=== PATIENT | female | born 1955 | race Hispanic/Latino ===

== ENCOUNTER 2016-10-11 10:26 | Inpatient (IN) | payer MEDICARE, MEDICAID ==
[2016-10-11 10:27] VITALS: BMI 33.1
[2016-10-11] MEDS ORDERED: Albuterol 0.083% Inhal Sol (2.5 mg/3 mL) UD IH STA (12:25)
[2016-10-11 13:09] LABS: BASO # 0.1 K/uL (0.0-0.2); EOS # 0.4 K/uL (0.0-0.7); EOS % 6.8 % (0.0-4.0); HEMATOCRIT 39.6 % (34.0-47.0); LYMPH # 1.7 K/uL (1.0-4.3); LYMPH % 29.1 % (20.0-40.0); MEAN CELL VOLUME 95.6 fL (81.0-99.0); MEAN CORPUSCULAR HEMOGLOBIN 31.5 pg (27.0-31.0); MEAN PLATELET VOLUME 9.2 fL (7.2-11.7); MONO # 0.5 K/uL (0.0-0.8); MONO % 7.8 % (0.0-10.0); WHITE BLOOD COUNT 5.8 K/uL (4.8-10.8)
[2016-10-11 13:19] LABS: CHLORIDE 100 mmol/L (98-107); SODIUM 137 mmol/L (132-148)
--- NOTE | 2016-10-11 13:19 | RAD ---
HISTORY: Shortness of breath COMPARISON: 06/27/2014 TECHNIQUE: Chest PA and lateral FINDINGS: LUNGS: Chronic interstitial lung markings. Mild venous congestion. PLEURA: No significant pleural effusion identified. No pneumothorax apparent. CARDIOVASCULAR: Normal. OSSEOUS STRUCTURES: No significant abnormalities. VISUALIZED UPPER ABDOMEN: Normal. OTHER FINDINGS: None. IMPRESSION: Chronic interstitial lung markings. Mild venous congestion.
[2016-10-11 13:20] LABS: POTASSIUM 3.9 mmol/L (3.6-5.2)
[2016-10-11 13:22] LABS: ALB/GLOB RATIO 1.2 (1.0-2.1); ALKALINE PHOSPHATASE 62 U/L (38-126); ALT/SGPT 51 U/L (9-52); AST/SGOT 53 U/L (14-36); BILIRUBIN,TOTAL 0.8 mg/dL (0.2-1.3); BLOOD UREA NITROGEN 8 mg/dL (7-17); CARBON DIOXIDE 27 mmol/L (22-30); GFR AFRICAN-AMERICAN > 60; GLUCOSE,RANDOM 91 mg/dL (65-105); TOTAL PROTEIN 7.3 g/dL (6.3-8.3)
[2016-10-11 13:23] LABS: CALCIUM 9.4 mg/dl (8.6-10.4)
--- NOTE | 2016-10-11 14:29 | C.PDOC ---
History Of Present Illness 61 year old female with a history of asthma, presents to the ED with complaints of SOB. (+) cough (+) chills (-) fever . Notes she did not use her inhaler this morning. Also notes that her left leg has been swollen for 1+ years but worse the last couple of days. She also reports urinary frequency and felling her "bladder is going to fall out." Denies trauma, chest pain, palpitations, or any other complaints at this time. Time Seen by Provider: 10/11/16 11:46 Chief Complaint (Nursing): Lower Extremity Problem/Injury History Per: Patient History/Exam Limitations: no limitations Onset/Duration Of Symptoms: Days Current Symptoms Are (Timing): Still Present Severity: Mild Pain Scale Rating Of: 3 Recent travel outside of the [place]: No Past Medical History Reviewed: Historical Data, Nursing Documentation, Vital Signs Vital Signs: Last Vital Signs Temp 102.5 F H 10/14/16 10:42 Pulse 101 H 10/14/16 09:33 Resp 20 10/14/16 08:20 BP 118/74 10/14/16 08:20 Pulse Ox 95 10/14/16 08:20 - Medical History PMH: Anemia, Anxiety, Arthritis, Asthma, Back Problems, Bipolar Disorder, Bronchitis, COPD, Depression, Fibromyalgia, Fractures, Gastrointestinal Ulcer, Gall Bladder Disease (under diagnosis), HTN, Hypercholesterolemia, Osteoporosis , Pneumonia, Rheumatoid Arthritis, Sleep Apnea (CPAP @ 15) - [facility] Procedures ENDOSCOPIC BRONCHIAL BX (09/07/13) ESOPHAGOGASTRODUODENOSCOPY [EGD] W/CLOSED BIOPSY (08/15/13) NON-INVASIVE MECHANICAL VENTILATION (06/26/14) Family History: States: Unknown Family Hx - Social History Hx Tobacco Use: No Hx Alcohol Use: No Hx Substance Use: No - Immunization History Hx Tetanus Toxoid Vaccination: Yes Hx Influenza Vaccination: Yes Hx Pneumococcal Vaccination: No Review Of Systems Except As Marked, All Systems Reviewed And Found Negative. Constitutional: Negative for: Fever, Chills Cardiovascular: Negative for: Chest Pain, Palpitations Respiratory: Positive for: Shortness of Breath. Negative for: Cough Genitourinary: Positive for: Frequency. Negative for: Dysuria Musculoskeletal: Positive for: Other (+Left leg swelling ). Negative for: Back Pain Neurological: Negative for: Weakness, Numbness Physical Exam - Physical Exam Appears: Non-toxic, No Acute Distress, Agitated, Other (+Anxious) Skin: Normal Color, Warm, Dry Head: Atraumatic, Normacephalic Eye(s): bilateral: Normal Inspection, EOMI Nose: Normal Oral Mucosa: Moist Throat: Normal, No Erythema, No Exudate Neck: Normal ROM, Supple Chest: Symmetrical, No Deformity Cardiovascular: Rhythm Regular Respiratory: Normal Breath Sounds, No Accessory Muscle Use, No Rales, No Rhonchi , No Wheezing Gastrointestinal/Abdominal: Soft, Tenderness (+Mild suprapubic tenderness), No Distention, No Guarding, No Rebound Extremity: Normal ROM, Pedal Edema (+Left pedal edema), No Calf Tenderness, No Deformity Pulses: Left Dorsalis Pedis: Normal, Right Dorsalis Pedis: Normal Neurological/Psych: Oriented x3, Normal Speech, Normal Cognition, Normal Motor, Normal Sensation ED Course And Treatment - Laboratory Results Result Diagrams: 10/11/16 13:06 10/11/16 13:06 ECG: Interpreted By Me, Viewed By Me ECG Rhythm: Sinus Rhythm Rate From EC O2 Sat by Pulse Oximetry: 95 (Room air) Pulse Ox Interpretation: Normal - Radiology CXR: Viewed By Me, Read By Radiologist CXR Interpretation: Yes: Other (Chronic interstitial lung markings. Mild venous congestion.) - CT Scan/US CTA Chest Other Rad Studies (CT/US): Read By Radiologist, Radiology Report Reviewed CT/US Interpretation: reator : Derrek Crotez MD. Dictator : Derrek Cortez MD. Sweetbread Trimmer : General Labor Forklift Operator : Derrek Cortez MD. Approver2 : Report Date : 10/11/2016 16:32:53. My Comment : . PROCEDURE: CT Chest with contrast (Pulmonary Angiogram). HISTORY: SOB. COMPARISON: CT chest 2013. TECHNIQUE: Axial computed tomography images were obtained of the chest in the pulmonary arterial phase of enhancement. Coronal and sagittal reformatted images were created and reviewed. Intravenous contrast dose: 100 mL Visipaque 320. Radiation dose: Total exam DLP = 502.20 mGy-cm. This CT exam was performed using one or more of the following dose reduction techniques : Automated exposure control, adjustment of the mA and/or kV according to patient size, and/or use of iterative reconstruction technique. FINDINGS: PULMONARY ARTERIES: Unremarkable. No pulmonary embolism. AORTA: No acute findings. No thoracic aortic aneurysm. LUNGS: Patchy and confluent ground- glass opacity in the left upper lobe, involving predominantly the lingula. , possibly representing early pneumonia. There is a small amount of heladio consolidation, possibly atelectasis, in the posterior lingula. . Stable 4 mm nodule in the right upper lobe (series 4, image 43). No new pulmonary mass. PLEURAL SPACES: Unremarkable. No effusion or pneuomothorax. HEART: Unremarkable. No cardiomegaly. No significant pericardial effusion. LYMPH NODES : There are several enlarged mediastinal lymph nodes. There is mild bilateral hilar lymphadenopathy. BONES, CHEST WALL: No fracture. OTHER FINDINGS: Distended esophagus filled with particulate food matter, to the level of the lung apices. Uncertain etiology. This finding was noted on examination of 2013 as well. Extensive fatty infiltration of the liver is noted. IMPRESSION: Left upper lobe infiltrate, nonspecific. No evidence of pulmonary embolism. Mild mediastinal and bilateral hilar lymphadenopathy. Distended esophagus filled with particulate food matter, uncertain etiology. No evidence of narrowing of the distal esophagus. Progress Note: Patient treated with Albuterol. Venous Duplex: Negative. Dr. Russell saw and evaluated the patient in the ED. He agreed with admission and will further evaluate the patient. Disposition - Disposition Disposition: HOSPITALIZED Disposition Time: 13:26 Condition: STABLE - Clinical Impression Clinical Impression: Pneumonia, Urinary tract infection, Swelling of lower extremity - PA / COKE INSPECTOR / Resident Statement MD/DO has reviewed & agrees with the documentation as recorded. - Scribe Statement The provider has reviewed the documentation as recorded by the Scribe Soniya Rosales. All medical record entries made by the Scribe were at my direction and personally dictated by me. I have reviewed the chart and agree that the record accurately reflects my personal performance of the history, physical exam, medical decision making, and the department course for this patient. I have also personally directed, reviewed, and agree with the discharge instructions and disposition.
[2016-10-11] MEDS ORDERED: Iodixanol 320 MG/ML 100 ML BOTTLE IV ONE (15:07)
[2016-10-11 15:26] LABS: RBC URINE 5 /hpf (0-3); URINE BACTERIA RARE (<OCC); URINE BILIRUBIN NEGATIVE (NEGATIVE); URINE BLOOD NEGATIVE (NEGATIVE); URINE COLOR Yellow (YELLOW); URINE GLUCOSE (UA) NORMAL (Normal); URINE KETONE NEGATIVE (NEGATIVE); URINE LEUKOCYTE ESTERASE 3+ Leu/uL (Negative); URINE PROTEIN NEGATIVE (NEGATIVE); URINE UROBILINOGEN NORMAL mg/dL (0.2-1.0); WBC URINE 15 /hpf (0-5)
--- NOTE | 2016-10-11 16:34 | CT ---
PROCEDURE: CT Chest with contrast (Pulmonary Angiogram) HISTORY: SOB COMPARISON: CT chest 06/27/2014. TECHNIQUE: Axial computed tomography images were obtained of the chest in the pulmonary arterial phase of enhancement. Coronal and sagittal reformatted images were created and reviewed. Intravenous contrast dose: 100 mL Visipaque 320 Radiation dose: Total exam DLP = 502.20 mGy-cm. This CT exam was performed using one or more of the following dose reduction techniques: Automated exposure control, adjustment of the mA and/or kV according to patient size, and/or use of iterative reconstruction technique. FINDINGS: PULMONARY ARTERIES: Unremarkable. No pulmonary embolism. AORTA: No acute findings. No thoracic aortic aneurysm. LUNGS: Patchy and confluent ground-glass opacity in the left upper lobe, involving predominantly the lingula. , possibly representing early pneumonia. There is a small amount of heladio consolidation, possibly atelectasis, in the posterior lingula. . Stable 4 mm nodule in the right upper lobe (series 4, image 43). No new pulmonary mass. PLEURAL SPACES: Unremarkable. No effusion or pneuomothorax. HEART: Unremarkable. No cardiomegaly. No significant pericardial effusion. LYMPH NODES: There are several enlarged mediastinal lymph nodes. There is mild bilateral hilar lymphadenopathy. BONES, CHEST WALL: No fracture. OTHER FINDINGS: Distended esophagus filled with particulate food matter, to the level of the lung apices. Uncertain etiology. This finding was noted on examination of 06/27/2014 as well. Extensive fatty infiltration of the liver is noted. IMPRESSION: Left upper lobe infiltrate, nonspecific. No evidence of pulmonary embolism. Mild mediastinal and bilateral hilar lymphadenopathy. Distended esophagus filled with particulate food matter, uncertain etiology. No evidence of narrowing of the distal esophagus.
[2016-10-11] MEDS ORDERED: Moxifloxacin IV 400mg/250ml NS 250 ML IV ONE (16:55)
[2016-10-11] MEDS ORDERED: Moxifloxacin IV 400mg/250ml NS 250 ML IVPB ONE (18:49)
--- NOTE | 2016-10-11 19:09 | CP.PCM.HP ---
History of Present Illness - History of Present Illness History of Present Illness: chief complaint: Worsening pain, and shortness of breath History present illness: 61-year-old female with a history of lupus, hypertension, osteoarthritis, chronic fibromyalgia, diabetes, hypertension, sleep apnea, came to the emergency room because of not feeling well. patient started having increasing symptoms of fever in the emergency room, complaining of pain, abdominal pain, nausea, associated with vomiting. Given the worsening symptoms patient was hospitalized with a possible sepsis, and started on IV antibiotic. Needed hospitalization Present on Admission - Present on Admission Any Indicators Present on Admission: No History of DVT/PE: No History of Uncontrolled Diabetes: No Urinary Catheter: No Decubitus Ulcer Present: No Review of Systems - Review of Systems All systems: reviewed and no additional remarkable complaints except Review of Systems: patient is having general is to body pain, headache noted, nausea noted, vomiting occasionally, lower abdominal pain, urinary discomfort noted, tenderness to pain, also complaining of pain in the bilateral knee and the low your ankle joint. fever, chills, cough, with mucus production noted Past Patient History - Infectious Disease Hx of Infectious Diseases: None - Past Medical History & Family History Past Medical History?: Yes Past Family History: Reviewed and not pertinent - Past Social History Smoking Status: Former Smoker - CARDIAC Hx Hypercholesterolemia: Yes Hx Hypertension: Yes - PULMONARY Hx Asthma: Yes Hx Bronchitis: Yes Hx Chronic Obstructive Pulmonary Disease (COPD): Yes Hx Pneumonia: Yes Hx Sleep Apnea: Yes (CPAP @ 15) - NEUROLOGICAL Hx Neurological Disorder: Yes Hx Dizziness: Yes Hx Syncope: Yes - HEENT Hx HEENT Problems: No - RENAL Hx Chronic Kidney Disease: No - ENDOCRINE/METABOLIC Hx Endocrine Disorders: Yes Hx Systemic Lupus Erythematosus: Yes - HEMATOLOGICAL/ONCOLOGICAL Hx Anemia: Yes - INTEGUMENTARY Hx Dermatological Problems: No - MUSCULOSKELETAL/RHEUMATOLOGICAL Hx Arthritis: Yes Hx Fractures: Yes Hx Osteoporosis: Yes Hx Rheumatoid Arthritis: Yes - GASTROINTESTINAL Hx Gall Bladder Disease: Yes (under diagnosis) - GENITOURINARY/GYNECOLOGICAL Hx Genitourinary Disorders: Yes Hx Uterine Cancer: Yes Other/Comment: urinate from two places and difficulty also under diagnosis Dr Collier - PSYCHIATRIC Hx Anxiety: Yes Hx Bipolar Disorder: Yes Hx Depression: Yes Hx Substance Use: No - SURGICAL HISTORY Hx Orthopedic Surgery: Yes (right elbow with metal fixation) - ANESTHESIA Hx Anesthesia: Yes Hx Anesthesia Reactions: No Hx Malignant Hyperthermia: No Meds Allergies/Adverse Reactions: Allergies Allergy/AdvReac Type Severity Reaction Status Date / Time No Known Allergies Allergy Verified 10/11/16 10:58 Physical Exam - Constitutional Additional comments: chest good air entry bilaterally regular heart sound nontender abdomen extended is no pedal edema [employer]ON[employer] alert awake oriented. Chills noted. Results - Vital Signs Recent Vital Signs: Last Vital Signs Temp 97.9 F 10/11/16 11:01 Pulse 78 10/11/16 11:01 Resp 20 10/11/16 12:06 BP 101/68 10/11/16 11:01 Pulse Ox 95 10/11/16 16:50 - Labs Result Diagrams: 10/16/16 07:10 10/15/16 11:24 Labs: Laboratory Results - last 24 hr 10/11/16 15:08 Urine Color Yellow Urine Clarity Hazy Urine pH 6.0 Ur Specific [place] 1.005 Urine Protein Negative Urine Glucose (UA) Normal Urine Ketones Negative Urine Blood Negative Urine Nitrate Negative Urine Bilirubin Negative Urine Urobilinogen Normal Ur Leukocyte Esterase 3+ H Urine WBC (Auto) 15 H Urine RBC (Auto) 5 H Ur Squamous Epith Cells 48 H Urine Bacteria Rare Assessment & Plan (1) Abnormal transaminases Status: Acute (2) Bronchitis Assessment and Plan: patient admitted with a history of hypertension diabetes hypercholesteremia osteoarthritis. Now having possible febrile illness, fever, chills, and associated with the abdominal pain. Underlying colitis cannot be ruled out. patient also has a history of pneumonia, pneumonia cannot be ruled out, advised the patient to start antibiotic continue to monitor we'll follow the patient Status: Acute (3) Chr obstructive pulmonary disease w/ acute lower respiratory infxn Status: Acute
[2016-10-11] MEDS ORDERED: Piperacillin/Tazobact 3.375 GM in Sodium Chloride 100 ML IVPB SCH (19:15)
[2016-10-11] MEDS: Saccharomyces Boulardi 250 mg Cap PO SCH (20:21)
[2016-10-11] MEDS: Piperacill/Tazo 3.375gm in Dex 50 ML IVPB SCH (22:10)
[2016-10-12] MEDS: Piperacill/Tazo 3.375gm in Dex 50 ML IVPB SCH ×3 (04:56→22:08)
[2016-10-12] MEDS: Fluticasone-Salmeterol 250-50mcg Diskus IH SCH ×2 (08:37→20:09)
[2016-10-12] MEDS: Saccharomyces Boulardi 250 mg Cap PO SCH ×2 (10:19→18:44)
--- NOTE | 2016-10-12 15:54 | VASCLAB ---
PROCEDURE: Left Lower Extremity Venous Duplex Exam. HISTORY: swelling PRIORS: None. TECHNIQUE: Left common femoral, femoral, popliteal and posterior tibial, peroneal and great saphenous veins were evaluated. Flow was assessed with color Doppler, compressibility, assessment of phasic flow and augmentation response. Report prepared by EMMANUEL Omer, RVT FINDINGS: LEFT: 1. Common Femoral Vein: 1.1. Compressibility - Fully compressible: Thrombus - None : Flow - Phasic: Augmentation -Normal: Reflux - None. 2. Femoral Vein: 2.1. Compressibility - Fully compressible: Thrombus - None: Flow - Phasic: Augmentation -Normal: Reflux - None. 3. Popliteal Vein: 3.1. Compressibility - Fully compressible: Thrombus - None: Flow - Phasic: Augmentation -Normal: Reflux - None. 4. Posterior Tibial Vein: 4.1. Compressibility - Fully compressible: Thrombus - None: Flow - Phasic: Augmentation -Normal: Reflux - None. 5. Peroneal Vein: 5.1. Compressibility - Fully compressible: Thrombus - None: Flow - Phasic: Augmentation -Normal: Reflux - None. 6. Great Saphenous Vein: 6.1. Compressibility - Fully compressible: Thrombus - None: Flow - Phasic: Augmentation - Normal: Reflux - None. OTHER FINDINGS: IMPRESSION: No evidence of deep or superficial vein thrombosis of the left lower extremity with excellent venous flow. Normal valve function noted of the left side. Normal venous flow noted in the right common femoral vein.
--- NOTE | 2016-10-12 16:12 | US ---
PROCEDURE: Renal/urinary bladder ultrasound HISTORY: cystitis COMPARISON: CT abdomen and pelvis with contrast performed 07/24/14 TECHNIQUE: Sonogram of the kidneys. FINDINGS: Limited examination. RIGHT KIDNEY: Measures: 12.3 x 6.1 x 5.1 cm. No obstructing calculus or hydronephrosis identified. LEFT KIDNEY: Measures: 13.8 x 7.1 x 5.6 cm. By report, the metal trimmer identified a punctate possible calcification as well as a possible tiny cyst in the left midpole, however due to lack of patient cooperation images were unable to be obtained. Recommend repeat imaging at which time the patient consents to further imaging. OTHER FINDINGS: Prevoid urinary bladder measures approximately 9.0 x 6.7 x 9.6 cm, calculated volume 299.10 mL. The patient declined postvoid imaging. Incidental note is made of echogenic hepatic parenchyma. IMPRESSION: By report, the metal trimmer identified a punctate possible calcification as well as a possible tiny cyst in the left midpole, however due to lack of patient cooperation images demonstrating these findings were not obtained. Recommend repeat imaging at which time the patient consents to further imaging. Prevoid urinary bladder measures approximately 9.0 x 6.7 x 9.6 cm, calculated volume 299.10 mL. The patient declined postvoid imaging. Incidental note is made of echogenic hepatic parenchyma. Echogenic liver may be seen in setting of hepatic parenchymal disease or fatty infiltration.
--- NOTE | 2016-10-12 19:55 | CP.PCM.PN ---
Subjective - Date & Time of Evaluation Date of Evaluation: 10/12/16 Time of Evaluation: 19:55 - Subjective Subjective: patient had evidence of low-grade fever. She's not feeling well. Chest pain noted. Nausea. Lower abdominal pain noted. Diarrhea present Objective - Vital Signs/Intake and Output Vital Signs (last 24 hours): Temp Pulse Resp BP Pulse Ox 99 F 113 H 22 148/84 96 10/12/16 15:21 10/12/16 15:21 10/12/16 15:21 10/12/16 15:21 10/12/16 15:21 - Medications Medications: Current Medications Acetaminophen (Tylenol 325mg Tab) 650 mg PO Q6 PRN PRN Reason: Fever >100.4 F Last Admin: 10/12/16 10:19 Dose: 650 mg Ezetimibe (Zetia) 10 mg PO DAILY [facility] Last Admin: 10/12/16 10:21 Dose: 10 mg Fenofibrate (Tricor) 145 mg PO DAILY [facility] Last Admin: 10/12/16 10:21 Dose: 145 mg Heparin Sodium (Porcine) (Heparin) 5,000 units SC Q12 [facility] Last Admin: 10/12/16 10:22 Dose: 5,000 units Hydroxychloroquine Sulfate (Plaquenil) 200 mg PO BID [facility] Last Admin: 10/12/16 18:45 Dose: 200 mg Piperacillin Sod/Tazobactam Sod (Zosyn 3.375 Gm Iv Premix) 50 mls @ 200 mls/hr IVPB Q8H [facility] Last Admin: 10/12/16 12:36 Dose: 200 mls/hr Metoclopramide HCl (Reglan) 5 mg PO DAILY [facility] Last Admin: 10/12/16 10:21 Dose: 5 mg Montelukast Sodium (Singulair) 10 mg PO HS [facility] Last Admin: 10/11/16 22:02 Dose: 10 mg Morphine Sulfate (Morphine) 2 mg IVP Q4 PRN PRN Reason: Pain, moderate (4-7) Last Admin: 10/12/16 09:06 Dose: 2 mg Paroxetine HCl (Paxil Cr) 25 mg PO DAILY [facility] Last Admin: 10/12/16 10:21 Dose: 25 mg Pregabalin (Lyrica) 75 mg PO QID [facility] Last Admin: 10/12/16 18:44 Dose: Not Given Saccharomyces Boulardii (Florastor) 250 mg PO BID [facility] Last Admin: 10/12/16 18:44 Dose: 250 mg Fluticasone/Salmeterol (Advair Diskus 250/50) 1 puff IH RQ12 [facility] Last Admin: 10/12/16 08:37 Dose: Not Given chest good air entry bilaterally regular heart sound nontender abdomen. Denies any nausea vomiting. Currently on IV antibiotic. Low-grade fever. Septic workup in progress Assessment and Plan (1) Fever Assessment & Plan: patient is currently having fever and sepsis. Unclear source. Currently on antibiotic. Continue to monitor. CT scan of the abdomen. We'll follow the patient Status: Acute (2) Sepsis Status: Acute
[2016-10-13] MEDS: Piperacill/Tazo 3.375gm in Dex 50 ML IVPB SCH ×3 (04:53→19:38)
[2016-10-13] MEDS: Fluticasone-Salmeterol 250-50mcg Diskus IH SCH ×2 (08:13→19:21)
[2016-10-13] MEDS: Saccharomyces Boulardi 250 mg Cap PO SCH ×2 (09:17→19:24)
--- NOTE | 2016-10-13 13:54 | CP.PCM.PN ---
Subjective - Date & Time of Evaluation Date of Evaluation: 10/13/16 Time of Evaluation: 22:47 - Subjective Subjective: patient is having increasing symptoms of weakness, tiredness, she's not feeling well. Low-grade fever noted. Diarrhea noted Objective - Vital Signs/Intake and Output Vital Signs (last 24 hours): Temp Pulse Resp BP Pulse Ox 99.6 F 103 H 20 109/78 95 10/13/16 08:30 10/13/16 08:30 10/13/16 08:30 10/13/16 08:30 10/13/16 08:30 Intake and Output: 10/13/16 10/13/16 06:59 18:59 Intake Total 530 Output Total 200 Balance 330 - Medications Medications: Current Medications Acetaminophen (Tylenol 325mg Tab) 650 mg PO Q6 PRN PRN Reason: Fever >100.4 F Last Admin: 10/13/16 04:52 Dose: 650 mg Ezetimibe (Zetia) 10 mg PO DAILY [facility] Last Admin: 10/13/16 09:18 Dose: 10 mg Fenofibrate (Tricor) 145 mg PO DAILY [facility] Last Admin: 10/13/16 09:16 Dose: 145 mg Heparin Sodium (Porcine) (Heparin) 5,000 units SC Q12 [facility] Last Admin: 10/13/16 09:18 Dose: 5,000 units Hydroxychloroquine Sulfate (Plaquenil) 200 mg PO BID [facility] Last Admin: 10/13/16 09:17 Dose: 200 mg Piperacillin Sod/Tazobactam Sod (Zosyn 3.375 Gm Iv Premix) 50 mls @ 200 mls/hr IVPB Q8H [facility] Last Admin: 10/13/16 12:47 Dose: 200 mls/hr Lorazepam (Ativan) 2 mg PO Q12 [facility] Last Admin: 10/13/16 09:17 Dose: 2 mg Metoclopramide HCl (Reglan) 5 mg PO DAILY [facility] Last Admin: 10/13/16 09:17 Dose: 5 mg Montelukast Sodium (Singulair) 10 mg PO HS [facility] Last Admin: 10/12/16 22:08 Dose: 10 mg Morphine Sulfate (Morphine) 2 mg IVP Q4 PRN PRN Reason: Pain, moderate (4-7) Last Admin: 10/12/16 22:07 Dose: 2 mg Paroxetine HCl (Paxil Cr) 25 mg PO DAILY [facility] Last Admin: 10/13/16 09:17 Dose: 25 mg Pregabalin (Lyrica) 75 mg PO QID [facility] Last Admin: 10/13/16 09:17 Dose: 75 mg Saccharomyces Boulardii (Florastor) 250 mg PO BID [facility] Last Admin: 10/13/16 09:17 Dose: 250 mg Fluticasone/Salmeterol (Advair Diskus 250/50) 1 puff IH RQ12 [facility] Last Admin: 10/13/16 08:13 Dose: 1 puff chest good air entry bilaterally regular heart sound nontender abdomen. On antibiotic Assessment and Plan (1) Pyelonephritis, unspecified Assessment & Plan: possible pyelonephritis. On antibiotic. Continue the current treatment. Status: Acute (2) Sepsis Status: Acute (3) UTI (urinary tract infection) Status: Acute
[2016-10-13] MEDS ORDERED: Iohexol 240 (50 ml) PO ONE (14:50)
--- NOTE | 2016-10-13 17:43 | CT ---
PROCEDURE: CT Abdomen and Pelvis without intravenous contrast HISTORY: bladder herniation, colitis COMPARISON: 07/24/2014. CT abdomen and pelvis. TECHNIQUE: Oral contrast only. Radiation dose: Total exam DLP = 1004.16 mGy-cm. This CT exam was performed using one or more of the following dose reduction techniques: Automated exposure control, adjustment of the mA and/or kV according to patient size, and/or use of iterative reconstruction technique. FINDINGS: LOWER THORAX: Eccentric mass gastroesophageal junction associated with hiatal hernia. Gastric neoplasm should be considered based on appearance and representing a new finding compared to the prior CT scan July 24, 2014. LIVER: Hepatopedal blood flow. Fatty infiltration manifest ultrasonographically as increased hepatomegaly. GALLBLADDER AND BILE DUCTS: Unremarkable. PANCREAS: Unremarkable. No gross lesion or ductal dilatation. SPLEEN: Borderline splenomegaly. Orthogonal measurements 6.8 x 13.7 cm. ADRENALS: Unremarkable. No mass. KIDNEYS AND URETERS: The kidneys are mildly edematous with perinephric stranding bilaterally. The right kidney is affected to a greater degree than the left. Findings are nonspecific, I can be seen with pyelonephritis. No evidence of hydronephrosis or obstructing calculus disease VASCULATURE: Unremarkable. No aortic aneurysm. BOWEL: Diverticulosis without an acute inflammatory component or other associated pathologic process. APPENDIX: Unremarkable. Normal appendix. PERITONEUM: Unremarkable. No free fluid. No free air. LYMPH NODES: Unremarkable. No enlarged lymph nodes. BLADDER: Unremarkable. REPRODUCTIVE: Unremarkable. BONES: No acute fracture. Scoliosis, secondary degenerative change at multiple levels. OTHER FINDINGS: Spell IMPRESSION: 1. Gastric mass at gastroesophageal junction a new finding compared to prior CT scans and suspicious for neoplasm. 2. Edematous kidneys bilaterally with perinephric stranding likely pyelonephritis. No evidence of obstructive uropathy. Unremarkable urinary bladder. 3. Hepatic steatosis. Hepatosplenomegaly.
--- NOTE | 2016-10-13 19:08 | CARD ---
APPROVED REPORT EKG Measurement Heart [id number] <Conclusion> Normal sinus rhythm Normal ECG
[2016-10-14] MEDS: Piperacill/Tazo 3.375gm in Dex 50 ML IVPB SCH ×3 (04:30→21:00)
[2016-10-14] MEDS: Fluticasone-Salmeterol 250-50mcg Diskus IH SCH ×2 (08:45→19:23)
[2016-10-14] MEDS: Saccharomyces Boulardi 250 mg Cap PO SCH ×2 (10:26→17:34)
--- NOTE | 2016-10-14 13:56 | PCM.URO ---
Urology Progress Note - Objective Intake & Output: Intake & Output 10/13/16 10/14/16 10/14/16 18:59 06:59 18:59 Intake Total 1050 Balance 1050 Intake: Intake, IV Amount 50 Right Forearm 50 Oral 1000 Other: # Voids Urine, Voided 5 Vital Signs: Vital Signs - 24 hr 10/13/16 10/13/16 10/14/16 15:49 23:30 00:21 Temperature 100 F H 99.1 F Pulse Rate 100 H 106 H 105 H Respiratory 20 20 Rate Blood Pressure 124/74 112/66 O2 Sat by Pulse 96 95 Oximetry 10/14/16 10/14/16 10/14/16 03:22 04:02 04:30 Temperature 101 F H Pulse Rate 105 H 115 H Respiratory Rate Blood Pressure O2 Sat by Pulse Oximetry 10/14/16 10/14/16 10/14/16 05:30 08:20 09:33 Temperature 98.6 F 99.3 F Pulse Rate 99 H 101 H Respiratory 20 Rate Blood Pressure 118/74 O2 Sat by Pulse 95 Oximetry 10/14/16 10/14/16 10:42 13:26 Temperature 102.5 F H Pulse Rate Respiratory Rate Blood Pressure O2 Sat by Pulse 95 Oximetry
--- NOTE | 2016-10-14 19:14 | CP.PCM.CON ---
History of Present Illness - History of Present Illness History of Present Illness: 61 year old female well know to me in the past but not seen in the office for more than one year. Has h/o bad acid reflux disease, large paraesophageal hiatal hernia and Al's esophagus last endoscoped in 2013. Admitted with SOB and found to have ELISE pneumonia and exacerbation of COPD, worsening leg edema. She reports pain in epigastric area and regurgitation of stomach contents and has been vomiting after meals since admission. According to her she has not been on acid reflux meds at home but it seems she is somewhat hypoxic (not wearing her O2) and may not be reliable for history. She has also had Nallely esophagitis in the past related to steroid therapy. white count and lfts all appear normal. CT scan shows large amount of food debris in distal esophagus but no esophageal stricture. Review of Systems - Review of Systems Systems not reviewed;Unavailable: Altered Mental Status - Cardiovascular Cardiovascular: Dyspnea, Leg Edema. absent: Chest Pain - Respiratory Respiratory: Cough, Dyspnea - Gastrointestinal Gastrointestinal: As Per HPI, Abdominal Pain, Bloating, Heartburn, Nausea, Vomiting. absent: Change in Stool Character, Hematemesis, Hematochezia, Melena Past Patient History - Infectious Disease Hx of Infectious Diseases: None - Past Medical History & Family History Past Medical History?: Yes - Past Social History Smoking Status: Former Smoker Alcohol: None Drugs: Denies - CARDIAC Hx Hypercholesterolemia: Yes Hx Hypertension: Yes - PULMONARY Hx Asthma: Yes Hx Bronchitis: Yes Hx Chronic Obstructive Pulmonary Disease (COPD): Yes Hx Pneumonia: Yes Hx Sleep Apnea: Yes (CPAP @ 15) - NEUROLOGICAL Hx Neurological Disorder: Yes Hx Dizziness: Yes Hx Syncope: Yes - HEENT Hx HEENT Problems: No - RENAL Hx Chronic Kidney Disease: No - ENDOCRINE/METABOLIC Hx Endocrine Disorders: Yes Hx Systemic Lupus Erythematosus: Yes - HEMATOLOGICAL/ONCOLOGICAL Hx Anemia: Yes Hx Cirrhosis: No Hx Hepatitis A: No Hx Hepatitis B: No Hx Hepatitis C: No - INTEGUMENTARY Hx Dermatological Problems: No - MUSCULOSKELETAL/RHEUMATOLOGICAL Hx Arthritis: Yes Hx Fractures: Yes Hx Osteoporosis: Yes Hx Rheumatoid Arthritis: Yes - GASTROINTESTINAL Hx Gastrointestinal Disorders: Yes Hx Clostridium Difficile: No Hx Colitis: No Hx Constipation: No Hx Crohn's Disease: No Hx Diarrhea: Yes Hx Diverticulitis: No Hx Esophageal Varices: No Hx Gall Bladder Disease: Yes (under diagnosis) Hx Gastritis: Yes Hx Gastroesophageal Reflux: Yes (Barretts and large hiatal hernia (exam 08/2013)) Hx Hemorrhoids: Yes Hx Irritable Bowel: No Hx Liver Failure: No Hx Nausea: Yes Hx Pancreatitis: No HX Swallowing Problems: Yes Hx Ulcer: No Hx Vomiting: Yes - GENITOURINARY/GYNECOLOGICAL Hx Genitourinary Disorders: Yes Hx Uterine Cancer: Yes Other/Comment: urinate from two places and difficulty also under diagnosis Dr Collier - PSYCHIATRIC Hx Anxiety: Yes Hx Bipolar Disorder: Yes Hx Depression: Yes Hx Substance Use: No - SURGICAL HISTORY Hx Surgeries: Yes Hx Orthopedic Surgery: Yes (right elbow with metal fixation) - ANESTHESIA Hx Anesthesia: Yes Hx Anesthesia Reactions: No Hx Malignant Hyperthermia: No Has any member of the family had a problem w/ anesthesia?: No Meds Allergies/Adverse Reactions: Allergies Allergy/AdvReac Type Severity Reaction Status Date / Time No Known Allergies Allergy Verified 10/11/16 10:58 - Medications Medications: Current Medications Acetaminophen (Tylenol 325mg Tab) 650 mg PO Q6 PRN PRN Reason: Fever >100.4 F Last Admin: 10/14/16 10:32 Dose: 650 mg Ezetimibe (Zetia) 10 mg PO DAILY [facility] Last Admin: 10/14/16 10:26 Dose: 10 mg Fenofibrate (Tricor) 145 mg PO DAILY [facility] Last Admin: 10/14/16 10:28 Dose: 145 mg Heparin Sodium (Porcine) (Heparin) 5,000 units SC Q12 [facility] Last Admin: 10/14/16 10:26 Dose: 5,000 units Hydroxychloroquine Sulfate (Plaquenil) 200 mg PO BID [facility] Last Admin: 10/14/16 17:35 Dose: 200 mg Piperacillin Sod/Tazobactam Sod (Zosyn 3.375 Gm Iv Premix) 50 mls @ 200 mls/hr IVPB Q8H [facility] Last Admin: 10/14/16 12:34 Dose: 200 mls/hr Lorazepam (Ativan) 2 mg PO Q12 [facility] Last Admin: 10/14/16 10:26 Dose: 2 mg Metoclopramide HCl (Reglan) 5 mg PO DAILY [facility] Last Admin: 10/14/16 10:26 Dose: 5 mg Montelukast Sodium (Singulair) 10 mg PO HS [facility] Last Admin: 10/12/16 22:08 Dose: 10 mg Morphine Sulfate (Morphine) 2 mg IVP Q4 PRN PRN Reason: Pain, moderate (4-7) Last Admin: 10/14/16 14:55 Dose: 2 mg Ondansetron HCl (Zofran Inj) 4 mg IVP Q8H PRN PRN Reason: vomiting Paroxetine HCl (Paxil Cr) 25 mg PO DAILY [facility] Last Admin: 10/14/16 10:26 Dose: 25 mg Pregabalin (Lyrica) 75 mg PO QID [facility] Last Admin: 10/14/16 17:33 Dose: Not Given Saccharomyces Boulardii (Florastor) 250 mg PO BID [facility] Last Admin: 10/14/16 17:34 Dose: 250 mg Fluticasone/Salmeterol (Advair Diskus 250/50) 1 puff IH RQ12 [facility] Last Admin: 10/14/16 08:45 Dose: 1 puff Physical Exam - Constitutional Appears: Chronically Ill Additional comments: Appearing pale and moderately SOB. Oxygen cannula replace in patients nose. - Head Exam Head Exam: ATRAUMATIC, NORMOCEPHALIC - Eye Exam Eye Exam: EOMI, PERRL. absent: Scleral icterus - ENT Exam ENT Exam: Mucous Membranes Moist - Respiratory Exam Respiratory Exam: Decreased Breath Sounds, Rhonchi, Wheezes - Cardiovascular Exam Cardiovascular Exam: REGULAR RHYTHM, +S1 - GI/Abdominal Exam GI & Abdominal Exam: Distended, Normal Bowel Sounds, Soft. absent: Guarding, Organomegaly, Rebound, Tenderness Additional comments: tender to epigastric and left periumbilical area. No masses or rebound. NABS. - Rectal Exam Rectal Exam: NORMAL INSPECTION - Extremities Exam Extremities exam: Positive for: pedal edema - Neurological Exam Neurological exam: Oriented x3 Additional comments: somewhat slow to answer and soft speech pattern. - Psychiatric Exam Psychiatric exam: Agitated, Flat Affect - Skin Skin Exam: Cyanosis, Warm Results - Vital Signs Recent Vital Signs: Last Vital Signs Temp 99.3 F 10/14/16 16:11 Pulse 101 H 10/14/16 19:03 Resp 20 10/14/16 16:11 BP 97/57 L 10/14/16 16:11 Pulse Ox 94 L 10/14/16 16:11 - Labs Result Diagrams: 10/11/16 13:06 10/11/16 13:06 - Imaging and Cardiology CT scan - abdomen Status: Image reviewed by me, Report reviewed by me Assessment & Plan (1) Nausea and vomiting Assessment and Plan: Patient with h/o large hiatal hernia (paraesophageal not candidate for surgical repair in the past), severe acid reflux and Al's esophagus reports she has not been taking her meds now has epigastric pain, vomiting and severe reflux type symptoms along with ELISE pneumonia. CT shows now abscess, torsion of hernia but large amount off food material in lower esophagus that is likely being regurgitated. No biliary tract disease on CT nor LFT abnormalities Advise high dose PPI IV for now Zofran as needed Elevate HOB at all times ADvise repeat EGD for diagnostic and surveillance purposes when patient is respiratorily more stable, perhaps prior to discharge as she has not followed up in office as scheduled jerrell due to her respiratory difficulties. Status: Acute (2) Al's esophagus determined by endoscopy Assessment and Plan: Surveillance needed as last exam three years ago. Not stable for EGD at this time Status: Chronic (3) Reflux esophagitis Assessment and Plan: as above Status: Acute (4) Paraesophageal hiatal hernia Assessment and Plan: Food contents on CT likely retained within the hernia pouch. r/o stricture or malignancy. Status: Chronic (5) Epigastric pain Assessment and Plan: as above Status: Acute (6) Left upper lobe pneumonia Assessment and Plan: as per Dr Russell Antibiotics and bronchodilators Encourage to wear O2. Status: Acute
--- NOTE | 2016-10-14 21:07 | CP.PCM.PN ---
Subjective - Date & Time of Evaluation Date of Evaluation: 10/14/16 Time of Evaluation: 21:04 - Subjective Subjective: pt is having severe high fever now 102.6 she had fever in the morning no nausea poor appetitie weakness noted no diarrhea Vital Signs - 24 hr 10/13/16 10/14/16 10/14/16 23:30 00:21 03:22 Temperature 99.1 F Pulse Rate 106 H 105 H 105 H Respiratory 20 Rate Blood Pressure 112/66 O2 Sat by Pulse 95 Oximetry 10/14/16 10/14/16 10/14/16 04:02 04:30 05:30 Temperature 101 F H 98.6 F Pulse Rate 115 H Respiratory Rate Blood Pressure O2 Sat by Pulse Oximetry 10/14/16 10/14/16 10/14/16 08:20 09:33 10:42 Temperature 99.3 F 102.5 F H Pulse Rate 99 H 101 H Respiratory 20 Rate Blood Pressure 118/74 O2 Sat by Pulse 95 Oximetry 10/14/16 10/14/16 10/14/16 13:26 15:15 16:11 Temperature 100.0 F H 99.3 F Pulse Rate 101 H Respiratory 20 Rate Blood Pressure 97/57 L O2 Sat by Pulse 95 94 L Oximetry 10/14/16 19:03 Temperature Pulse Rate 101 H Respiratory Rate Blood Pressure O2 Sat by Pulse Oximetry chest good air entry regular hs abd soft no edema ct abd showing gastric mass? pyelonephritis BC contamination? but fever now appreciate GI and Urology eval will get ID pt with fever pyelonehritis gastric mass Lupus get again septic wp Objective - Vital Signs/Intake and Output Vital Signs (last 24 hours): Temp Pulse Resp BP Pulse Ox 99.3 F 101 H 20 97/57 L 94 L 10/14/16 16:11 10/14/16 19:03 10/14/16 16:11 10/14/16 16:11 10/14/16 16:11 - Medications Medications: Current Medications Acetaminophen (Tylenol 325mg Tab) 650 mg PO Q6 PRN PRN Reason: Fever >100.4 F Last Admin: 10/14/16 10:32 Dose: 650 mg Ezetimibe (Zetia) 10 mg PO DAILY [facility] Last Admin: 10/14/16 10:26 Dose: 10 mg Fenofibrate (Tricor) 145 mg PO DAILY [facility] Last Admin: 10/14/16 10:28 Dose: 145 mg Heparin Sodium (Porcine) (Heparin) 5,000 units SC Q12 [facility] Last Admin: 10/14/16 10:26 Dose: 5,000 units Hydroxychloroquine Sulfate (Plaquenil) 200 mg PO BID [facility] Last Admin: 10/14/16 17:35 Dose: 200 mg Piperacillin Sod/Tazobactam Sod (Zosyn 3.375 Gm Iv Premix) 50 mls @ 200 mls/hr IVPB Q8H [facility] Last Admin: 10/14/16 12:34 Dose: 200 mls/hr Lorazepam (Ativan) 2 mg PO Q12 [facility] Last Admin: 10/14/16 10:26 Dose: 2 mg Metoclopramide HCl (Reglan) 5 mg PO DAILY [facility] Last Admin: 10/14/16 10:26 Dose: 5 mg Montelukast Sodium (Singulair) 10 mg PO HS [facility] Last Admin: 10/12/16 22:08 Dose: 10 mg Morphine Sulfate (Morphine) 2 mg IVP Q4 PRN PRN Reason: Pain, moderate (4-7) Last Admin: 10/14/16 14:55 Dose: 2 mg Ondansetron HCl (Zofran Inj) 4 mg IVP Q8H PRN PRN Reason: vomiting Pantoprazole Sodium (Protonix Inj) 40 mg IVP Q12H [facility] Paroxetine HCl (Paxil Cr) 25 mg PO DAILY [facility] Last Admin: 10/14/16 10:26 Dose: 25 mg Pregabalin (Lyrica) 75 mg PO QID [facility] Last Admin: 10/14/16 17:33 Dose: Not Given Saccharomyces Boulardii (Florastor) 250 mg PO BID [facility] Last Admin: 10/14/16 17:34 Dose: 250 mg Fluticasone/Salmeterol (Advair Diskus 250/50) 1 puff IH RQ12 [facility] Last Admin: 10/14/16 19:23 Dose: Not Given
[2016-10-14] MEDS ORDERED: Sodium Chloride 0.9% 1,000 ML IV SCH (21:15)
[2016-10-14 21:38] LABS: BASO % 0.4 % (0.0-2.0); EOS # 0.6 K/uL (0.0-0.7); EOS % 5.6 % (0.0-4.0); HEMATOCRIT 37.9 % (34.0-47.0); LYMPH # 0.4 K/uL (1.0-4.3); LYMPH % 3.6 % (20.0-40.0); MEAN CELL VOLUME 94.3 fL (81.0-99.0); MEAN CORPUSCULAR HEMOGLOBIN 32.1 pg (27.0-31.0); MONO # 0.6 K/uL (0.0-0.8); MONO % 4.9 % (0.0-10.0); PLATELET COUNT 147 K/uL (130-400); RED CELL DISTRIBUTION WIDTH 12.9 % (11.5-14.5); WHITE BLOOD COUNT 11.5 K/uL (4.8-10.8)
[2016-10-14 21:47] LABS: CHLORIDE 93 mmol/L (98-107)
[2016-10-14 21:48] LABS: POTASSIUM 2.7 mmol/L (3.6-5.2); SODIUM 132 mmol/L (132-148)
[2016-10-14 21:50] LABS: ALB/GLOB RATIO 1.2 (1.0-2.1); AST/SGOT 120 U/L (14-36); BILIRUBIN,TOTAL 3.6 mg/dL (0.2-1.3); BLOOD UREA NITROGEN 7 mg/dL (7-17); CARBON DIOXIDE 23 mmol/L (22-30); GFR AFRICAN-AMERICAN > 60; TOTAL PROTEIN 6.3 g/dL (6.3-8.3)
[2016-10-14 21:51] LABS: ALKALINE PHOSPHATASE 72 U/L (38-126); ALT/SGPT 85 U/L (9-52); CALCIUM 8.3 mg/dl (8.6-10.4); GLUCOSE,RANDOM 152 mg/dL (65-105)
[2016-10-14 22:30] LABS: RBC URINE 1 /hpf (0-3); TRANSITIONAL EPITHIAL < 1 /hpf (0-3); URINE BACTERIA OCC (<OCC); URINE BILIRUBIN 1+ (NEGATIVE); URINE BLOOD NEGATIVE (NEGATIVE); URINE COLOR Amber (YELLOW); URINE GLUCOSE (UA) NORMAL (Normal); URINE KETONE NEGATIVE (NEGATIVE); URINE PROTEIN 1+ mg/dL (NEGATIVE); WBC URINE 16 /hpf (0-5)
[2016-10-14 22:33] LABS: URINE LEUKOCYTE ESTERASE 2+ Leu/uL (Negative)
[2016-10-14 22:34] LABS: BASOPHIL 1 % (0-2); EOSINOPHIL 4 % (0-4); MYELOCYTE 1 % (0-0); NEUTROPHIL 67 % (50-75); TOTAL CELLS COUNTED 100
--- NOTE | 2016-10-14 23:56 | CP.PCM.PN ---
Addendum entered and electronically signed by Pema Cummings DO 10/15/16 01: 01: Repeat lactate 0.8. BP stable. Nurse informed to give potassium for low K+. Original Note: <Pema Cummings - Last Filed: 10/14/16 23:36> Subjective - Date & Time of Evaluation Date of Evaluation: 10/14/16 Time of Evaluation: 23:00 - Subjective Subjective: House Doctor Note: Code sepsis was called for this 61 year old female with a history of asthma, who was admitted on 10/11/16 with with complaints of SOB, urinary frequency, cough , fevers, chills. UA was positive. Urine Cx ordered earlier today is still pending. CT done 10/13/16 shows pyelo and ELISE pneumonia. ID consult was placed today as per primary team. Patient has been having fevers since admission, with max temp tonight 102.7. Code sepsis was called for new blood work showing bandemia. WBC are only slightly elevated. Vital signs during code sepsis were: Temp 99.8, 119/76, HR 98 , RR 22, 96% on 3 L. Lactid acid at 9pm was 2.4. Patient is currently on IVF and antibiotics as per primary team and Dr. Stern from ID. Primary, Dr. Russell ordered C&S, antibiotics, antibiotics . Patient was noted to have elevated LFTs and T. Benedict. RUQ US has been ordered for the morning. Patient was also noticed to have low K+ 2.7. Code sepsis order set ordered: Repeat VBG shock in 3 hours from 9pm. Stat CBC, CMP, Magnesium. Vitals Q15M. Potassium was replaced. Hospitalist Dr. Dooley discussed with Dr. Russell who is aware of patient's fevers and has ordered appropriate workup as above. Will follow up lactid acid. Objective - Vital Signs/Intake and Output Vital Signs (last 24 hours): Temp Pulse Resp BP Pulse Ox 99.8 F H 98 H 22 119/76 93 L 10/14/16 23:06 10/14/16 23:06 10/14/16 23:06 10/14/16 23:06 10/14/16 23:06 - Medications Medications: Current Medications Acetaminophen (Tylenol 325mg Tab) 650 mg PO Q6 PRN PRN Reason: Fever >100.4 F Last Admin: 10/14/16 21:00 Dose: 650 mg Heparin Sodium (Porcine) (Heparin) 5,000 units SC Q12 [facility] Last Admin: 10/14/16 22:24 Dose: 5,000 units Hydroxychloroquine Sulfate (Plaquenil) 200 mg PO BID [facility] Last Admin: 10/14/16 17:35 Dose: 200 mg Piperacillin Sod/Tazobactam Sod (Zosyn 3.375 Gm Iv Premix) 50 mls @ 200 mls/hr IVPB Q8H [facility] Last Admin: 10/14/16 21:00 Dose: 200 mls/hr Sodium Chloride (Sodium Chloride 0.9%) 1,000 mls @ 100 mls/hr IV .Q10H [facility] Lorazepam (Ativan) 2 mg PO Q12 PRN PRN Reason: Agitation Montelukast Sodium (Singulair) 10 mg PO HS [facility] Last Admin: 10/14/16 22:24 Dose: 10 mg Morphine Sulfate (Morphine) 2 mg IVP Q4 PRN PRN Reason: Pain, moderate (4-7) Last Admin: 10/14/16 14:55 Dose: 2 mg Ondansetron HCl (Zofran Inj) 4 mg IVP Q8H PRN PRN Reason: vomiting Pantoprazole Sodium (Protonix Inj) 40 mg IVP Q12H [facility] Last Admin: 10/14/16 22:24 Dose: 40 mg Paroxetine HCl (Paxil Cr) 25 mg PO DAILY [facility] Last Admin: 10/14/16 10:26 Dose: 25 mg Potassium Chloride (K-Dur 20 Meq Er Tab) 40 meq PO Q4H [facility] Stop: 10/15/16 07:31 Pregabalin (Lyrica) 75 mg PO Q12 [facility] Last Admin: 10/14/16 22:20 Dose: Not Given Saccharomyces Boulardii (Florastor) 250 mg PO BID [facility] Last Admin: 10/14/16 17:34 Dose: 250 mg Fluticasone/Salmeterol (Advair Diskus 250/50) 1 puff IH RQ12 [facility] Last Admin: 10/14/16 19:23 Dose: Not Given - Labs Labs: 10/14/16 21:35 10/14/16 21:35 <Jese Dooley P - Last Filed: 10/23/16 22:21> Objective - Vital Signs/Intake and Output Vital Signs (last 24 hours): Temp Pulse Resp BP Pulse Ox 98.2 F 86 20 156/100 H 97 10/17/16 07:00 10/17/16 07:05 10/17/16 07:00 10/17/16 07:00 10/17/16 07:00 - Labs Labs: 10/16/16 07:10 10/15/16 11:24 PT 16.6 SECONDS (9.7-12.2) H 10/15/16 00:38 INR 1.5 10/15/16 00:38 APTT 71 SECONDS (21-34) H 10/15/16 00:38 Attending/Attestation - Attestation I have personally seen and examined this patient.: Yes I have fully participated in the care of the patient.: Yes I have reviewed all pertinent clinical information, including history, physical exam and plan: Yes
[2016-10-15 00:35] LABS: VENOUS BLOOD GAS BASE EXCESS 2.4 mmol/L (0.0-2.0); VENOUS BLOOD GAS PCO2 38 mmHg (40-60); VENOUS BLOOD PH 7.45 (7.32-7.43)
[2016-10-15 00:41] LABS: BASO % 0.1 % (0.0-2.0); EOS # 0.5 K/uL (0.0-0.7); EOS % 5.8 % (0.0-4.0); HEMATOCRIT 34.2 % (34.0-47.0); LYMPH # 0.5 K/uL (1.0-4.3); LYMPH % 5.1 % (20.0-40.0); MEAN CELL VOLUME 94.3 fL (81.0-99.0); MEAN CORPUSCULAR HEMOGLOBIN 31.7 pg (27.0-31.0); MEAN CORPUSCULAR HGB CONC 33.6 g/dL (33.0-37.0); MEAN PLATELET VOLUME 9.7 fL (7.2-11.7); MONO # 0.4 K/uL (0.0-0.8); MONO % 4.5 % (0.0-10.0); PLATELET COUNT 123 K/uL (130-400); RED CELL DISTRIBUTION WIDTH 12.8 % (11.5-14.5); WHITE BLOOD COUNT 9.2 K/uL (4.8-10.8)
[2016-10-15] MEDS: Potassium Chloride 20 mEq ER Tab PO SCH ×2 (00:41→03:31)
[2016-10-15 00:49] LABS: INR 1.5
[2016-10-15 01:02] LABS: CHLORIDE 98 mmol/L (98-107); SODIUM 132 mmol/L (132-148)
[2016-10-15 01:05] LABS: ALB/GLOB RATIO 1.2 (1.0-2.1); ALKALINE PHOSPHATASE 64 U/L (38-126); ALT/SGPT 82 U/L (9-52); AST/SGOT 89 U/L (14-36); BILIRUBIN,TOTAL 3.7 mg/dL (0.2-1.3); BLOOD UREA NITROGEN 8 mg/dL (7-17); CALCIUM 7.8 mg/dl (8.6-10.4); CARBON DIOXIDE 22 mmol/L (22-30); GFR AFRICAN-AMERICAN > 60; GLUCOSE,RANDOM 135 mg/dL (65-105)
[2016-10-15 01:06] LABS: MAGNESIUM 1.7 mg/dL (1.6-2.3)
[2016-10-15 01:17] LABS: POTASSIUM 2.3 mmol/L (3.6-5.2)
[2016-10-15 02:46] LABS: RBC URINE < 1 /hpf (0-3); URINE BILIRUBIN NEGATIVE (NEGATIVE); URINE BLOOD NEGATIVE (NEGATIVE); URINE COLOR Yellow (YELLOW); URINE GLUCOSE (UA) NORMAL (Normal); URINE KETONE NEGATIVE (NEGATIVE); URINE LEUKOCYTE ESTERASE NEG Leu/uL (Negative); URINE PROTEIN NEGATIVE (NEGATIVE); URINE UROBILINOGEN NORMAL mg/dL (0.2-1.0); WBC URINE 3 /hpf (0-5)
[2016-10-15 03:06] LABS: EOSINOPHIL 4 % (0-4); NEUTROPHIL 81 % (50-75); TOTAL CELLS COUNTED 100
[2016-10-15] MEDS: Piperacill/Tazo 3.375gm in Dex 50 ML IVPB SCH ×2 (03:31→12:12)
[2016-10-15] MEDS: Fluticasone-Salmeterol 250-50mcg Diskus IH SCH ×2 (07:42→20:04)
--- NOTE | 2016-10-15 10:03 | PCM.URO ---
Urology Progress Note - Objective Lab Results Last 24 Hours: Laboratory Results - last 24 hr 10/14/16 10/14/16 10/14/16 21:08 21:35 22:13 WBC 11.5 H D RBC 4.02 Hgb 12.9 Hct 37.9 MCV 94.3 MCH 32.1 H MCHC 34.0 RDW 12.9 Plt Count 147 MPV 10.0 Neut % (Auto) 85.5 H Lymph % (Auto) 3.6 L Polk % (Auto) 4.9 Eos % (Auto) 5.6 H Baso % (Auto) 0.4 Neut # 9.8 H Lymph # 0.4 L Polk # 0.6 Eos # 0.6 Baso # 0.0 Neutrophils % (Manual) 67 Band Neutrophils % 18 H* Lymphocytes % (Manual) 4 L Monocytes % (Manual) 5 Eosinophils % (Manual) 4 Basophils % (Manual) 1 Myelocytes % 1 H Platelet Estimate Normal Anisocytosis (manual) Slight Microcytosis (manual) Slight PT INR APTT pO2 VBG pH VBG pCO2 VBG HCO3 VBG Total CO2 VBG O2 Sat (Calc) VBG Base Excess VBG Potassium Glucose Lactate Crit Value Called To Crit Value Called By Crit Value Read Back Blood Gas Notified Time Sodium 132 Potassium 2.7 L Chloride 93 L Carbon Dioxide 23 Anion Gap 19 BUN 7 Creatinine 0.7 Est GFR ( Amer) > 60 Est GFR (Non-Af Amer) > 60 Random Glucose 152 H Lactic Acid 2.4 H Calcium 8.3 L Magnesium Total Bilirubin 3.6 H AST 120 H D ALT 85 H D Alkaline Phosphatase 72 Total Protein 6.3 Albumin 3.4 L Globulin 2.9 Albumin/Globulin Ratio 1.2 Venous Blood Potassium Urine Color Stacy Urine Clarity Hazy Urine pH 5.0 Ur Specific Yale 1.018 Urine Protein 1+ H Urine Glucose (UA) Normal Urine Ketones Negative Urine Blood Negative Urine Nitrate Negative Urine Bilirubin 1+ H Urine Urobilinogen 4.0 H Ur Leukocyte Esterase 2+ H Urine WBC (Auto) 16 H Urine RBC (Auto) 1 Ur Squamous Epith Cells 22 H Ur Transition Epith Cell < 1 Urine Bacteria Occ H 10/15/16 10/15/16 10/15/16 00:12 00:38 02:38 WBC 9.2 RBC 3.63 L Hgb 11.5 Hct 34.2 MCV 94.3 MCH 31.7 H MCHC 33.6 RDW 12.8 Plt Count 123 L D MPV 9.7 Neut % (Auto) 84.5 H Lymph % (Auto) 5.1 L Polk % (Auto) 4.5 Eos % (Auto) 5.8 H Baso % (Auto) 0.1 Neut # 7.7 H Lymph # 0.5 L Polk # 0.4 Eos # 0.5 Baso # 0.0 Neutrophils % (Manual) 81 H Band Neutrophils % 5 H Lymphocytes % (Manual) 6 L Monocytes % (Manual) 4 Eosinophils % (Manual) 4 Basophils % (Manual) Myelocytes % Platelet Estimate Slightly decreased L Anisocytosis (manual) Microcytosis (manual) PT 16.6 H INR 1.5 APTT 71 H pO2 61 H VBG pH 7.45 H VBG pCO2 38 L VBG HCO3 26.7 VBG Total CO2 27.6 VBG O2 Sat (Calc) 95.9 H VBG Base Excess 2.4 H VBG Potassium 2.1 L* Glucose 129 H Lactate 0.8 Crit Value Called To Prudent rn Crit Value Called By Dung [employer] Crit Value Read Back Y Blood Gas Notified Time 36 Sodium 135.0 132 Potassium 2.3 L* Chloride 103.0 98 Carbon Dioxide 22 Anion Gap 14 BUN 8 Creatinine 0.7 Est GFR ( Amer) > 60 Est GFR (Non-Af Amer) > 60 Random Glucose 135 H Lactic Acid Calcium 7.8 L Magnesium 1.7 Total Bilirubin 3.7 H AST 89 H D ALT 82 H Alkaline Phosphatase 64 Total Protein 6.0 L Albumin 3.3 L Globulin 2.7 Albumin/Globulin Ratio 1.2 Venous Blood Potassium 2.1 L* Urine Color Yellow Urine Clarity Clear Urine pH 5.0 Ur Specific Yale 1.004 Urine Protein Negative Urine Glucose (UA) Normal Urine Ketones Negative Urine Blood Negative Urine Nitrate Negative Urine Bilirubin Negative Urine Urobilinogen Normal Ur Leukocyte Esterase Neg Urine WBC (Auto) 3 Urine RBC (Auto) < 1 Ur Squamous Epith Cells 2 Ur Transition Epith Cell Urine Bacteria Vital Signs: Vital Signs - 24 hr 10/14/16 10/14/16 10/14/16 13:26 15:15 16:11 Temperature 100.0 F H 99.3 F Pulse Rate 101 H Respiratory 20 Rate Blood Pressure 97/57 L O2 Sat by Pulse 95 94 L Oximetry 10/14/16 10/14/16 10/14/16 19:03 21:08 23:05 Temperature 102.7 F H 98.9 F Pulse Rate 101 H 115 H 92 H Respiratory 20 20 Rate Blood Pressure 125/71 127/81 O2 Sat by Pulse 93 L 98 Oximetry 10/14/16 10/15/16 10/15/16 23:06 00:00 00:07 Temperature 99.8 F H 99.6 F Pulse Rate 98 H 96 H 92 H Respiratory 22 Rate Blood Pressure 119/76 116/75 O2 Sat by Pulse 93 L 96 Oximetry 10/15/16 10/15/16 10/15/16 00:37 00:45 01:00 Temperature Pulse Rate 92 H 76 93 H Respiratory 123 H Rate Blood Pressure 112/72 121/77 O2 Sat by Pulse Oximetry 10/15/16 10/15/16 10/15/16 01:15 01:30 01:45 Temperature Pulse Rate 92 H 94 H 92 H Respiratory Rate Blood Pressure 118/70 109/70 107/71 O2 Sat by Pulse Oximetry 10/15/16 10/15/16 10/15/16 02:00 02:15 02:30 Temperature Pulse Rate 96 H 94 H 93 H Respiratory Rate Blood Pressure 116/69 109/70 112/74 O2 Sat by Pulse Oximetry 10/15/16 10/15/16 10/15/16 02:45 04:00 08:01 Temperature 98.2 F 99.0 F Pulse Rate 96 H 94 H 105 H Respiratory 20 Rate Blood Pressure 114/76 109/92 H 119/69 O2 Sat by Pulse 96 96 Oximetry
[2016-10-15] MEDS: Saccharomyces Boulardi 250 mg Cap PO SCH ×2 (10:59→18:00)
--- NOTE | 2016-10-15 11:33 | US ---
HISTORY: elevated t.citlalli, jaundice COMPARISON: None. TECHNIQUE: Sonographic evaluation of the abdomen. FINDINGS: LIVER: Measures 23 cm. Hepatomegaly. Hepatopedal blood flow. Fatty infiltration manifest ultrasonographically as increased Echogenicity of the liver parenchyma. No mass. No intrahepatic bile duct dilatation. GALLBLADDER: Unremarkable. No gallstones. COMMON BILE DUCT: Measures 6.1 mm. No stones. No dilatation. PANCREAS: Obscured by overlying bowel gas. Non diagnostic assessment of the pancreas. RIGHT KIDNEY: Measures 5.8 x 12.9cm. Normal echogenicity. No calculus, mass, or hydronephrosis. : IVC: Unremarkable. OTHER FINDINGS: None. IMPRESSION: Hepatomegaly/hepatic steatosis. No acute findings
[2016-10-15 11:34] LABS: BASO % 0.3 % (0.0-2.0); EOS # 0.8 K/uL (0.0-0.7); EOS % 7.7 % (0.0-4.0); HEMATOCRIT 33.4 % (34.0-47.0); LYMPH # 0.5 K/uL (1.0-4.3); LYMPH % 5.1 % (20.0-40.0); MEAN CELL VOLUME 93.5 fL (81.0-99.0); MEAN CORPUSCULAR HEMOGLOBIN 32.5 pg (27.0-31.0); MEAN CORPUSCULAR HGB CONC 34.7 g/dL (33.0-37.0); MEAN PLATELET VOLUME 10.5 fL (7.2-11.7); MONO # 0.5 K/uL (0.0-0.8); PLATELET COUNT 138 K/uL (130-400); WHITE BLOOD COUNT 9.7 K/uL (4.8-10.8)
[2016-10-15 11:39] LABS: CHLORIDE 95 mmol/L (98-107); POTASSIUM 3.6 mmol/L (3.6-5.2); SODIUM 131 mmol/L (132-148)
--- NOTE | 2016-10-15 11:40 | RAD ---
HISTORY: Sepsis Patient COMPARISON: 10/11/2016 FINDINGS: LUNGS: No active pulmonary disease. PLEURA: No significant pleural effusion identified, no pneumothorax apparent. CARDIOVASCULAR: Normal. OSSEOUS STRUCTURES: No significant abnormalities. VISUALIZED UPPER ABDOMEN: Normal. OTHER FINDINGS: None. IMPRESSION: No active disease.
[2016-10-15 11:42] LABS: ALB/GLOB RATIO 1.1 (1.0-2.1); ALKALINE PHOSPHATASE 49 U/L (38-126); ALT/SGPT 70 U/L (9-52); AST/SGOT 87 U/L (14-36); BILIRUBIN,TOTAL 3.9 mg/dL (0.2-1.3); BLOOD UREA NITROGEN 8 mg/dL (7-17); CARBON DIOXIDE 24 mmol/L (22-30); GFR AFRICAN-AMERICAN > 60; GLUCOSE,RANDOM 115 mg/dL (65-105)
[2016-10-15 11:43] LABS: CALCIUM 7.4 mg/dl (8.6-10.4); MAGNESIUM 1.7 mg/dL (1.6-2.3)
[2016-10-15 12:15] LABS: EOSINOPHIL 7 % (0-4); NEUTROPHIL 75 % (50-75); TOTAL CELLS COUNTED 100
[2016-10-15 12:18] LABS: LARGE PLATELETS PRESENT
--- NOTE | 2016-10-15 13:39 | CP.PCM.PN ---
Subjective - Date & Time of Evaluation Date of Evaluation: 10/15/16 Time of Evaluation: 13:37 - Subjective Subjective: Events of Code Sepsis reviewed Increasing Bilirubin noted but Sono shows no stones or ductal dilatation No Vomiting since yesterday Complaining she doesnt want all the sweet liquid diet she was given Objective - Vital Signs/Intake and Output Vital Signs (last 24 hours): Temp Pulse Resp BP Pulse Ox 99.0 F 105 H 20 119/69 96 10/15/16 08:01 10/15/16 08:01 10/15/16 08:01 10/15/16 08:01 10/15/16 08:01 - Medications Medications: Current Medications Acetaminophen (Tylenol 325mg Tab) 650 mg PO Q6 PRN PRN Reason: Fever >100.4 F Last Admin: 10/14/16 21:00 Dose: 650 mg Heparin Sodium (Porcine) (Heparin) 5,000 units SC Q12 [facility] Last Admin: 10/15/16 11:01 Dose: 5,000 units Hydroxychloroquine Sulfate (Plaquenil) 200 mg PO BID [facility] Last Admin: 10/15/16 11:00 Dose: 200 mg Piperacillin Sod/Tazobactam Sod (Zosyn 3.375 Gm Iv Premix) 50 mls @ 200 mls/hr IVPB Q8H [facility] Last Admin: 10/15/16 12:12 Dose: 200 mls/hr Potassium Chloride 40 meq/ (Sodium Chloride) 1,020 mls @ 100 mls/hr IV .[id number] [facility] Last Admin: 10/15/16 11:01 Dose: Not Given Montelukast Sodium (Singulair) 10 mg PO HS [facility] Last Admin: 10/14/16 22:24 Dose: 10 mg Morphine Sulfate (Morphine) 2 mg IVP Q4 PRN PRN Reason: Pain, moderate (4-7) Last Admin: 10/15/16 10:58 Dose: 2 mg Ondansetron HCl (Zofran Inj) 4 mg IVP Q8H PRN PRN Reason: vomiting Last Admin: 10/15/16 04:02 Dose: 4 mg Pantoprazole Sodium (Protonix Inj) 40 mg IVP Q12H [facility] Last Admin: 10/15/16 08:36 Dose: 40 mg Paroxetine HCl (Paxil Cr) 25 mg PO DAILY [facility] Last Admin: 10/15/16 11:00 Dose: 25 mg Pregabalin (Lyrica) 75 mg PO Q12 [facility] Last Admin: 10/15/16 11:01 Dose: Not Given Saccharomyces Boulardii (Florastor) 250 mg PO BID [facility] Last Admin: 10/15/16 10:59 Dose: 250 mg Fluticasone/Salmeterol (Advair Diskus 250/50) 1 puff IH RQ12 [facility] Last Admin: 10/15/16 07:42 Dose: Not Given - Labs Labs: 10/15/16 11:24 10/15/16 11:24 PT 16.6 SECONDS (9.7-12.2) H 10/15/16 00:38 INR 1.5 10/15/16 00:38 APTT 71 SECONDS (21-34) H 10/15/16 00:38 - Constitutional Appears: No Acute Distress - Head Exam Head Exam: ATRAUMATIC, NORMOCEPHALIC - Eye Exam Eye Exam: EOMI, PERRL - Respiratory Exam Respiratory Exam: Decreased Breath Sounds, Wheezes - Cardiovascular Exam Cardiovascular Exam: REGULAR RHYTHM - GI/Abdominal Exam GI & Abdominal Exam: Distended, Soft, Tenderness, Normal Bowel Sounds. absent: Mass, Rebound - Extremities Exam Extremities Exam: Pedal Edema Assessment and Plan (1) Nausea and vomiting Assessment & Plan: Likely due to her large hernia and reflux disease +/- sepsis Continue PPI that was started yesterday Advance diet as tolerated Status: Acute (2) Al's esophagus determined by endoscopy Assessment & Plan: On Protonix Will need repeat EGD when stable Status: Chronic (3) Reflux esophagitis Assessment & Plan: as above Status: Acute (4) Paraesophageal hiatal hernia Assessment & Plan: as above Status: Chronic (5) Epigastric pain Assessment & Plan: as above Status: Acute (6) Left upper lobe pneumonia Status: Acute (7) Hyperbilirubinemia Assessment & Plan: Likely due to sepsis, steatohepatitis/fatty liver, meds all possible. Sono excluded biliary obstruction or stones Status: Acute (8) Abnormal transaminases Assessment & Plan: as above Check viral markers though enzymes improving. Status: Acute
--- NOTE | 2016-10-15 14:10 | CP.PCM.CON ---
History of Present Illness - History of Present Illness History of Present Illness: INFECTIOUS DISEASE CONSULTATION. HPI;. 61-year-old female with history of bronchial asthma, lupus, was admitted on with complaints of shortness of breath, cough, chills and elevated fevers off 102.5. Patient also complained of urinary frequency and left leg swelling for the past 1 year but which had gone worse for the past [address] abdomen and pelvis with by mouth contrast done on 10/13/16 showed pyelonephritis and questionable gastric mass at the GE junction. CT of the chest/ angio showed left upper lobe infiltrate with no pulmonary embolism and mild mediastinal and hilar lymphadenopathy with distended esophagus. On 10/14/16: Code Sepsis was called as she spiked a fever to 102.7 and blood work showed bandemia with elevated WBC count of 11.5. patient also had elevated lactic acid on admission with T acid of 2.4. Patient was also noted to have elevated d-dimer and duplex venous studies were unremarkable for DVT. Patient was started on IV Zosyn 3.375 every 8 hourly On admission but presently patient's LFTs were found to be elevated with total bilirubin increasing to 3.9. Initial blood cultures 1 out of 2 sets positive for staph coagulase negative ? Contaminant. Infectious disease consultation was requested by Dr. Russell for "sepsis and pyelonephritis with left upper lobe pneumonia. Patient denies any chest pain palpitations, nausea vomiting or diarrhea.PATIENT DENIES ANY EXPECTORATION BUT COMPLAINS OF INTERMITTENT COUGH. PMH: Anemia, Anxiety, Arthritis, Asthma, Back Problems, Bipolar Disorder, Bronchitis, COPD, Depression, Fibromyalgia, Fractures, Gastrointestinal Ulcer, Gall Bladder Disease (under diagnosis), HTN, Hypercholesterolemia, Osteoporosis , Pneumonia, Rheumatoid Arthritis, Sleep Apnea (CPAP @ 15) Allergy; NKA. - [facility] Procedures ENDOSCOPIC BRONCHIAL BX (09/07/13) ESOPHAGOGASTRODUODENOSCOPY [EGD] W/CLOSED BIOPSY (08/15/13) NON-INVASIVE MECHANICAL VENTILATION (06/26/14) Family History: States: Unknown Family Hx - Social History Hx Tobacco Use: No Hx Alcohol Use: No Hx Substance Use: No - Immunization History Hx Tetanus Toxoid Vaccination: Yes Hx Influenza Vaccination: Yes Hx Pneumococcal Vaccination: No Review of Systems - Constitutional Constitutional: Chills, Fever. absent: Headache - EENT Nose/Mouth/Throat: Dry Mouth. absent: Mouth Lesions, Odynophagia, Sore Throat - Cardiovascular Cardiovascular: Dyspnea, Dyspnea on Exertion, Edema, Leg Edema, Pedal Edema. absent: Chest Pain - Respiratory Respiratory: Cough, Dyspnea on Exertion, Chest Congestion. absent: Hemoptysis, Pain with Coughing - Gastrointestinal Gastrointestinal: absent: Abdominal Pain (PATIENT HAS GASTRIC REFLUX.), Diarrhea , Nausea, Vomiting - Genitourinary Genitourinary: Dysuria, Pyuria, Urinary Frequency, Voiding Freq/Small Amts - Neurological Neurological: absent: Headaches - Hematologic/Lymphatic Hematologic: As Per HPI. absent: Easy Bruising, Lymphadenopathy Past Patient History - Infectious Disease Hx of Infectious Diseases: None - Past Medical History & Family History Past Medical History?: Yes - Past Social History Smoking Status: Former Smoker Alcohol: None Drugs: Denies - CARDIAC Hx Hypercholesterolemia: Yes Hx Hypertension: Yes - PULMONARY Hx Asthma: Yes Hx Bronchitis: Yes Hx Chronic Obstructive Pulmonary Disease (COPD): Yes Hx Pneumonia: Yes Hx Sleep Apnea: Yes (CPAP @ 15) - NEUROLOGICAL Hx Neurological Disorder: Yes Hx Dizziness: Yes Hx Syncope: Yes - HEENT Hx HEENT Problems: No - RENAL Hx Chronic Kidney Disease: No - ENDOCRINE/METABOLIC Hx Endocrine Disorders: Yes Hx Systemic Lupus Erythematosus: Yes - HEMATOLOGICAL/ONCOLOGICAL Hx Anemia: Yes Hx Cirrhosis: No Hx Hepatitis A: No Hx Hepatitis B: No Hx Hepatitis C: No - INTEGUMENTARY Hx Dermatological Problems: No - MUSCULOSKELETAL/RHEUMATOLOGICAL Hx Arthritis: Yes Hx Fractures: Yes Hx Osteoporosis: Yes Hx Rheumatoid Arthritis: Yes - GASTROINTESTINAL Hx Gastrointestinal Disorders: Yes Hx Clostridium Difficile: No Hx Colitis: No Hx Constipation: No Hx Crohn's Disease: No Hx Diarrhea: Yes Hx Diverticulitis: No Hx Esophageal Varices: No Hx Gall Bladder Disease: Yes (under diagnosis) Hx Gastritis: Yes Hx Gastroesophageal Reflux: Yes (Barretts and large hiatal hernia (exam 08/2013)) Hx Hemorrhoids: Yes Hx Irritable Bowel: No Hx Liver Failure: No Hx Nausea: Yes Hx Pancreatitis: No HX Swallowing Problems: Yes Hx Ulcer: No Hx Vomiting: Yes - GENITOURINARY/GYNECOLOGICAL Hx Genitourinary Disorders: Yes Hx Uterine Cancer: Yes Other/Comment: urinate from two places and difficulty also under diagnosis Dr Collier - PSYCHIATRIC Hx Anxiety: Yes Hx Bipolar Disorder: Yes Hx Depression: Yes Hx Substance Use: No - SURGICAL HISTORY Hx Surgeries: Yes Hx Orthopedic Surgery: Yes (right elbow with metal fixation) - ANESTHESIA Hx Anesthesia: Yes Hx Anesthesia Reactions: No Hx Malignant Hyperthermia: No Has any member of the family had a problem w/ anesthesia?: No Meds Allergies/Adverse Reactions: Allergies Allergy/AdvReac Type Severity Reaction Status Date / Time No Known Allergies Allergy Verified 10/11/16 10:58 - Medications Medications: Current Medications Acetaminophen (Tylenol 325mg Tab) 650 mg PO Q6 PRN PRN Reason: Fever >100.4 F Last Admin: 10/14/16 21:00 Dose: 650 mg Heparin Sodium (Porcine) (Heparin) 5,000 units SC Q12 [facility] Last Admin: 10/15/16 11:01 Dose: 5,000 units Hydroxychloroquine Sulfate (Plaquenil) 200 mg PO BID [facility] Last Admin: 10/15/16 11:00 Dose: 200 mg Piperacillin Sod/Tazobactam Sod (Zosyn 3.375 Gm Iv Premix) 50 mls @ 200 mls/hr IVPB Q8H [facility] Last Admin: 10/15/16 12:12 Dose: 200 mls/hr Potassium Chloride 40 meq/ (Sodium Chloride) 1,020 mls @ 100 mls/hr IV .[id number] [facility] Last Admin: 10/15/16 11:01 Dose: Not Given Montelukast Sodium (Singulair) 10 mg PO HS [facility] Last Admin: 10/14/16 22:24 Dose: 10 mg Morphine Sulfate (Morphine) 2 mg IVP Q4 PRN PRN Reason: Pain, moderate (4-7) Last Admin: 10/15/16 10:58 Dose: 2 mg Ondansetron HCl (Zofran Inj) 4 mg IVP Q8H PRN PRN Reason: vomiting Last Admin: 10/15/16 04:02 Dose: 4 mg Pantoprazole Sodium (Protonix Inj) 40 mg IVP Q12H [facility] Last Admin: 10/15/16 08:36 Dose: 40 mg Paroxetine HCl (Paxil Cr) 25 mg PO DAILY [facility] Last Admin: 10/15/16 11:00 Dose: 25 mg Pregabalin (Lyrica) 75 mg PO Q12 [facility] Last Admin: 10/15/16 11:01 Dose: Not Given Saccharomyces Boulardii (Florastor) 250 mg PO BID [facility] Last Admin: 10/15/16 10:59 Dose: 250 mg Fluticasone/Salmeterol (Advair Diskus 250/50) 1 puff IH RQ12 [facility] Last Admin: 10/15/16 07:42 Dose: Not Given Physical Exam - Constitutional Appears: No Acute Distress - Head Exam Head Exam: NORMAL INSPECTION - Eye Exam Eye Exam: EOMI, PERRL, Scleral icterus - ENT Exam ENT Exam: Mucous Membranes Dry, Normal Oropharynx - Neck Exam Neck exam: Positive for: Normal Inspection. Negative for: Meningismus - Respiratory Exam Respiratory Exam: Rales, Rhonchi - Cardiovascular Exam Cardiovascular Exam: Tachycardia, REGULAR RHYTHM, +S1, +S2 - GI/Abdominal Exam GI & Abdominal Exam: Distended (MILD TENDERNESS EPIGASTRIC AND MID ABDOMEN.), Normal Bowel Sounds, Soft, Tenderness. absent: Organomegaly - Psychiatric Exam Psychiatric exam: Normal Mood - Skin Skin Exam: Normal Color, Warm Results - Vital Signs Recent Vital Signs: Last Vital Signs Temp 99.0 F 10/15/16 08:01 Pulse 105 H 10/15/16 08:01 Resp 20 10/15/16 08:01 BP 119/69 10/15/16 08:01 Pulse Ox 96 10/15/16 08:01 - Labs Result Diagrams: 10/15/16 11:24 10/15/16 11:24 Labs: Laboratory Results - last 24 hr 10/14/16 10/14/16 10/14/16 21:08 21:35 22:13 WBC 11.5 H D RBC 4.02 Hgb 12.9 Hct 37.9 MCV 94.3 MCH 32.1 H MCHC 34.0 RDW 12.9 Plt Count 147 MPV 10.0 Neut % (Auto) 85.5 H Lymph % (Auto) 3.6 L [place] % (Auto) 4.9 Eos % (Auto) 5.6 H Baso % (Auto) 0.4 Neut # 9.8 H Lymph # 0.4 L [place] # 0.6 Eos # 0.6 Baso # 0.0 Neutrophils % (Manual) 67 Band Neutrophils % 18 H* Lymphocytes % (Manual) 4 L Monocytes % (Manual) 5 Eosinophils % (Manual) 4 Basophils % (Manual) 1 Myelocytes % 1 H Platelet Estimate Normal Large Platelets Hypochromasia (manual) Poikilocytosis (manual Anisocytosis (manual) Slight Microcytosis (manual) Slight PT INR APTT pO2 VBG pH VBG pCO2 VBG HCO3 VBG Total CO2 VBG O2 Sat (Calc) VBG Base Excess VBG Potassium Glucose Lactate Crit Value Called To Crit Value Called By Crit Value Read Back Blood Gas Notified Time Sodium 132 Potassium 2.7 L Chloride 93 L Carbon Dioxide 23 Anion Gap 19 BUN 7 Creatinine 0.7 Est GFR ( Amer) > 60 Est GFR (Non-Af Amer) > 60 Random Glucose 152 H Lactic Acid 2.4 H Calcium 8.3 L Magnesium Total Bilirubin 3.6 H AST 120 H D ALT 85 H D Alkaline Phosphatase 72 Total Protein 6.3 Albumin 3.4 L Globulin 2.9 Albumin/Globulin Ratio 1.2 Venous Blood Potassium Urine Color Stacy Urine Clarity Hazy Urine pH 5.0 Ur Specific [place] 1.018 Urine Protein 1+ H Urine Glucose (UA) Normal Urine Ketones Negative Urine Blood Negative Urine Nitrate Negative Urine Bilirubin 1+ H Urine Urobilinogen 4.0 H Ur Leukocyte Esterase 2+ H Urine WBC (Auto) 16 H Urine RBC (Auto) 1 Ur Squamous Epith Cells 22 H Ur Transition Epith Cell < 1 Urine Bacteria Occ H Stool Occult Blood 10/15/16 10/15/16 10/15/16 00:12 00:38 02:38 WBC 9.2 RBC 3.63 L Hgb 11.5 Hct 34.2 MCV 94.3 MCH 31.7 H MCHC 33.6 RDW 12.8 Plt Count 123 L D MPV 9.7 Neut % (Auto) 84.5 H Lymph % (Auto) 5.1 L [place] % (Auto) 4.5 Eos % (Auto) 5.8 H Baso % (Auto) 0.1 Neut # 7.7 H Lymph # 0.5 L [place] # 0.4 Eos # 0.5 Baso # 0.0 Neutrophils % (Manual) 81 H Band Neutrophils % 5 H Lymphocytes % (Manual) 6 L Monocytes % (Manual) 4 Eosinophils % (Manual) 4 Basophils % (Manual) Myelocytes % Platelet Estimate Slightly decreased L Large Platelets Hypochromasia (manual) Poikilocytosis (manual Anisocytosis (manual) Microcytosis (manual) PT 16.6 H INR 1.5 APTT 71 H pO2 61 H VBG pH 7.45 H VBG pCO2 38 L VBG HCO3 26.7 VBG Total CO2 27.6 VBG O2 Sat (Calc) 95.9 H VBG Base Excess 2.4 H VBG Potassium 2.1 L* Glucose 129 H Lactate 0.8 Crit Value Called To Prudent rn Crit Value Called By 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 Crit Value Read Back Y Blood Gas Notified Time 36 Sodium 135.0 132 Potassium 2.3 L* Chloride 103.0 98 Carbon Dioxide 22 Anion Gap 14 BUN 8 Creatinine 0.7 Est GFR ( Amer) > 60 Est GFR (Non-Af Amer) > 60 Random Glucose 135 H Lactic Acid Calcium 7.8 L Magnesium 1.7 Total Bilirubin 3.7 H AST 89 H D ALT 82 H Alkaline Phosphatase 64 Total Protein 6.0 L Albumin 3.3 L Globulin 2.7 Albumin/Globulin Ratio 1.2 Venous Blood Potassium 2.1 L* Urine Color Yellow Urine Clarity Clear Urine pH 5.0 Ur Specific [place] 1.004 Urine Protein Negative Urine Glucose (UA) Normal Urine Ketones Negative Urine Blood Negative Urine Nitrate Negative Urine Bilirubin Negative Urine Urobilinogen Normal Ur Leukocyte Esterase Neg Urine WBC (Auto) 3 Urine RBC (Auto) < 1 Ur Squamous Epith Cells 2 Ur Transition Epith Cell Urine Bacteria Stool Occult Blood 10/15/16 10/15/16 10:31 11:24 WBC 9.7 RBC 3.57 L Hgb 11.6 Hct 33.4 L MCV 93.5 MCH 32.5 H MCHC 34.7 RDW 13.0 Plt Count 138 MPV 10.5 Neut % (Auto) 81.9 H Lymph % (Auto) 5.1 L [place] % (Auto) 5.0 Eos % (Auto) 7.7 H Baso % (Auto) 0.3 Neut # 8.0 H Lymph # 0.5 L [place] # 0.5 Eos # 0.8 H Baso # 0.0 Neutrophils % (Manual) 75 Band Neutrophils % 10 H Lymphocytes % (Manual) 4 L Monocytes % (Manual) 4 Eosinophils % (Manual) 7 H Basophils % (Manual) Myelocytes % Platelet Estimate Normal Large Platelets Present Hypochromasia (manual) Slight Poikilocytosis (manual Slight Anisocytosis (manual) Slight Microcytosis (manual) PT INR APTT pO2 VBG pH VBG pCO2 VBG HCO3 VBG Total CO2 VBG O2 Sat (Calc) VBG Base Excess VBG Potassium Glucose Lactate Crit Value Called To Crit Value Called By Crit Value Read Back Blood Gas Notified Time Sodium 131 L Potassium 3.6 Chloride 95 L Carbon Dioxide 24 Anion Gap 16 BUN 8 Creatinine 0.7 Est GFR ( Amer) > 60 Est GFR (Non-Af Amer) > 60 Random Glucose 115 H Lactic Acid Calcium 7.4 L Magnesium 1.7 Total Bilirubin 3.9 H AST 87 H ALT 70 H Alkaline Phosphatase 49 Total Protein 6.0 L Albumin 3.1 L Globulin 2.9 Albumin/Globulin Ratio 1.1 Venous Blood Potassium Urine Color Urine Clarity Urine pH Ur Specific [place] Urine Protein Urine Glucose (UA) Urine Ketones Urine Blood Urine Nitrate Urine Bilirubin Urine Urobilinogen Ur Leukocyte Esterase Urine WBC (Auto) Urine RBC (Auto) Ur Squamous Epith Cells Ur Transition Epith Cell Urine Bacteria Stool Occult Blood Negative - Imaging and Cardiology Chest x-ray Status: Report reviewed by me (no active disease. see CT chest/Angio 10/13/16.. No pulmonary embolism. Left upper lobe infiltrate. Mild mediastinal hilar lymphadenopathy.) Assessment & Plan (1) Pneumonia Assessment and Plan: pancultures esr,crp CLARISSE. ATYPICAL TITERS, MRSA SCREEN, dc iv zOSYN IN VIEW OF HYPERBILIRUBINEMIA.. sTART iv pRIMAXIN 500 MG iv PIGGYBACK EVERY 6 HOURLY 10/15/16 aT iv VANCOMYCIN 1 G EVERY 24HRLY 10/15/16 Status: Acute (2) Pyelonephritis, unspecified Assessment and Plan: UA ,URINE CULTURES - PENDING START iv pRIMAXIN 500 MG iv PIGGYBACK EVERY 6 HOURLY 10/15/16 ON iv VANCOMYCIN 1 G EVERY 24HRLY 10/15/16 Status: Acute (3) Leg swelling Status: Acute (4) Reflux esophagitis Assessment and Plan: PER GI , PATIENT HAS A LARGE PARAESOPHAGEAL HERNIA & HISTORY OF REFLUX ESOPHAGITIS. ELEVATED HEAD OF THE PATIENT WHILE FEEDING. CONTINUE PPI PER GI. Status: Acute (5) Paraesophageal hiatal hernia Status: Chronic (6) Hyperbilirubinemia Status: Acute (7) History of lupus Status: Acute (8) Asthma Status: Acute
[2016-10-15] MEDS ORDERED: Vancomycin 1 gm/NS 200 ml 200 ML IVPB SCH (15:00)
[2016-10-15] MEDS: Vancomycin 1 gm/NS 200 ml 200 ML IVPB SCH (19:16)
--- NOTE | 2016-10-15 23:26 | CP.PCM.PN ---
Subjective - Date & Time of Evaluation Date of Evaluation: 10/15/16 Time of Evaluation: 23:51 - Subjective Subjective: Patient had a fever last night, febrile illness noted. Patient antibiotic was changed. Patient is feeling otherwise well, no nausea vomiting Objective - Vital Signs/Intake and Output Vital Signs (last 24 hours): Temp Pulse Resp BP Pulse Ox 99.4 F 98 H 21 113/75 95 10/15/16 15:40 10/15/16 15:40 10/15/16 15:40 10/15/16 15:40 10/15/16 15:40 Chest bilateral good air entry no wheezing or rales noted, regular heart sound, nontender abdomen, no pedal edema Patient's labs reviewed in Patient recently had abdominal CAT scan on the abdomen, showing evidence of abnormal in the stomach, according to the Gi most likely related to hiatus hernia - Medications Medications: Current Medications Acetaminophen (Tylenol 325mg Tab) 650 mg PO Q6 PRN PRN Reason: Fever >100.4 F Last Admin: 10/14/16 21:00 Dose: 650 mg Heparin Sodium (Porcine) (Heparin) 5,000 units SC Q12 [facility] Last Admin: 10/15/16 22:08 Dose: 5,000 units Hydroxychloroquine Sulfate (Plaquenil) 200 mg PO BID [facility] Last Admin: 10/15/16 17:56 Dose: 200 mg Potassium Chloride 40 meq/ (Sodium Chloride) 1,020 mls @ 100 mls/hr IV .[id number] [facility] Last Admin: 10/15/16 18:00 Dose: 100 mls/hr Imipenem/Cilastatin Sodium 500 (mg/ Sodium Chloride) 100 mls @ 100 mls/hr IVPB Q8H [facility] Last Admin: 10/15/16 17:58 Dose: 100 mls/hr Vancomycin/Sodium Chloride (Vancocin) 200 mls @ 133.333 mls/hr IVPB Q24H [facility] Stop: 10/20/16 20:01 Last Admin: 10/15/16 19:16 Dose: 133.333 mls/hr Montelukast Sodium (Singulair) 10 mg PO HS [facility] Last Admin: 10/15/16 22:08 Dose: 10 mg Morphine Sulfate (Morphine) 2 mg IVP Q4 PRN PRN Reason: Pain, moderate (4-7) Last Admin: 10/15/16 18:55 Dose: 2 mg Ondansetron HCl (Zofran Inj) 4 mg IVP Q8H PRN PRN Reason: vomiting Last Admin: 10/15/16 15:07 Dose: 4 mg Pantoprazole Sodium (Protonix Inj) 40 mg IVP Q12H [facility] Last Admin: 10/15/16 18:46 Dose: 40 mg Paroxetine HCl (Paxil Cr) 25 mg PO DAILY [facility] Last Admin: 10/15/16 11:00 Dose: 25 mg Pregabalin (Lyrica) 75 mg PO Q12 [facility] Last Admin: 10/15/16 11:01 Dose: Not Given Saccharomyces Boulardii (Florastor) 250 mg PO BID [facility] Last Admin: 10/15/16 18:00 Dose: 250 mg Fluticasone/Salmeterol (Advair Diskus 250/50) 1 puff IH RQ12 [facility] Last Admin: 10/15/16 20:04 Dose: 1 puff - Labs Labs: 10/15/16 11:24 10/15/16 11:24 PT 16.6 SECONDS (9.7-12.2) H 10/15/16 00:38 INR 1.5 10/15/16 00:38 APTT 71 SECONDS (21-34) H 10/15/16 00:38 Assessment and Plan - Assessment and Plan (Free Text) Assessment: Patient with acute febrile illness. Acute fever. Sepsis. On antibiotic. ID evaluation, continue the current treatment.
[2016-10-16 07:26] LABS: BASO % 0.3 % (0.0-2.0); EOS # 0.7 K/uL (0.0-0.7); MEAN CELL VOLUME 93.8 fL (81.0-99.0); MEAN CORPUSCULAR HEMOGLOBIN 31.5 pg (27.0-31.0); MEAN CORPUSCULAR HGB CONC 33.6 g/dL (33.0-37.0); MEAN PLATELET VOLUME 10.1 fL (7.2-11.7); MONO # 0.5 K/uL (0.0-0.8); MONO % 5.7 % (0.0-10.0); RED CELL DISTRIBUTION WIDTH 13.1 % (11.5-14.5); WHITE BLOOD COUNT 8.4 K/uL (4.8-10.8)
[2016-10-16 08:31] LABS: ALB/GLOB RATIO 1.3 (1.0-2.1); ALKALINE PHOSPHATASE 67 U/L (38-126); AST/SGOT 61 U/L (14-36); BILIRUBIN,DIRECT 2.3 mg/dL (0.0-0.4); BILIRUBIN,TOTAL 2.9 mg/dL (0.2-1.3); TOTAL PROTEIN 4.9 g/dL (6.3-8.3)
[2016-10-16 08:32] LABS: ALT/SGPT 73 U/L (9-52)
[2016-10-16] MEDS: Fluticasone-Salmeterol 250-50mcg Diskus IH SCH ×2 (09:00→19:50)
[2016-10-16] MEDS: Saccharomyces Boulardi 250 mg Cap PO SCH ×2 (11:00→19:24)
--- NOTE | 2016-10-16 14:02 | CP.PCM.PN ---
Subjective - Date & Time of Evaluation Date of Evaluation: 10/16/16 Time of Evaluation: 13:40 - Subjective Subjective: F?U vomiting., elev WBC Covering Dr Almeida Reports feeling better. Denies vomiting, fever, chills, SZ, LOC, ELIZALDE, cough RB, melena, ELIZALDE, hemoptysis, hematuria, tremor, myalgia Objective - Vital Signs/Intake and Output Vital Signs (last 24 hours): Temp Pulse Resp BP Pulse Ox 98.7 F 110 H 18 160/85 H 95 10/16/16 08:42 10/16/16 08:42 10/16/16 08:42 10/16/16 08:42 10/16/16 08:42 Intake and Output: 10/16/16 10/16/16 06:59 18:59 Intake Total 1979 700 Balance 1979 700 - Medications Medications: Current Medications Acetaminophen (Tylenol 325mg Tab) 650 mg PO Q6 PRN PRN Reason: Fever >100.4 F Last Admin: 10/14/16 21:00 Dose: 650 mg Heparin Sodium (Porcine) (Heparin) 5,000 units SC Q12 [facility] Last Admin: 10/16/16 11:00 Dose: 5,000 units Hydroxychloroquine Sulfate (Plaquenil) 200 mg PO BID [facility] Last Admin: 10/16/16 11:00 Dose: 200 mg Potassium Chloride 40 meq/ (Sodium Chloride) 1,020 mls @ 100 mls/hr IV .[id number] [facility] Last Admin: 10/16/16 08:19 Dose: 100 mls/hr Imipenem/Cilastatin Sodium 500 (mg/ Sodium Chloride) 100 mls @ 100 mls/hr IVPB Q8H [facility] Last Admin: 10/16/16 10:00 Dose: 100 mls/hr Vancomycin/Sodium Chloride (Vancocin) 200 mls @ 133.333 mls/hr IVPB Q24H [facility] Stop: 10/20/16 20:01 Last Admin: 10/15/16 19:16 Dose: 133.333 mls/hr Montelukast Sodium (Singulair) 10 mg PO HS [facility] Last Admin: 10/15/16 22:08 Dose: 10 mg Morphine Sulfate (Morphine) 2 mg IVP Q4 PRN PRN Reason: Pain, moderate (4-7) Last Admin: 10/16/16 11:44 Dose: 2 mg Ondansetron HCl (Zofran Inj) 4 mg IVP Q8H PRN PRN Reason: vomiting Last Admin: 10/15/16 15:07 Dose: 4 mg Pantoprazole Sodium (Protonix Inj) 40 mg IVP Q12H [facility] Last Admin: 10/16/16 06:41 Dose: 40 mg Paroxetine HCl (Paxil Cr) 25 mg PO DAILY [facility] Last Admin: 10/16/16 11:00 Dose: 25 mg Pregabalin (Lyrica) 75 mg PO Q12 [facility] Last Admin: 10/16/16 11:00 Dose: 75 mg Saccharomyces Boulardii (Florastor) 250 mg PO BID [facility] Last Admin: 10/16/16 11:00 Dose: 250 mg Fluticasone/Salmeterol (Advair Diskus 250/50) 1 puff IH RQ12 [facility] Last Admin: 10/15/16 20:04 Dose: 1 puff - Labs Labs: 10/16/16 07:10 10/15/16 11:24 PT 16.6 SECONDS (9.7-12.2) H 10/15/16 00:38 INR 1.5 10/15/16 00:38 APTT 71 SECONDS (21-34) H 10/15/16 00:38 - Constitutional Appears: Non-toxic - Respiratory Exam Respiratory Exam: Rhonchi - Cardiovascular Exam Cardiovascular Exam: RRR - GI/Abdominal Exam GI & Abdominal Exam: Soft, Normal Bowel Sounds. absent: Tenderness - Neurological Exam Neurological Exam: Alert, Awake, Oriented x3 - Skin Skin Exam: absent: Rash Assessment and Plan (1) Abnormal transaminases Assessment & Plan: improving Status: Acute (2) Asthma Status: Acute (3) Left upper lobe pneumonia Status: Acute (4) Nausea and vomiting Assessment & Plan: Pt reports improving. consider metabolic, sepsis, JOSEY, h hernia. Status: Acute (5) Al's esophagus determined by endoscopy Assessment & Plan: meds, bland diet Status: Chronic (6) Paraesophageal hiatal hernia Assessment & Plan: Consider food debris in hernia sac, vs esophagus. Status: Chronic (7) Sepsis Status: Acute
[2016-10-16 17:41] VITALS: RESP 20
[2016-10-16] MEDS: Vancomycin 1 gm/NS 200 ml 200 ML IVPB SCH (20:10)
--- NOTE | 2016-10-16 20:26 | CP.PCM.PN ---
Subjective - Date & Time of Evaluation Date of Evaluation: 10/16/16 Time of Evaluation: 20:26 - Subjective Subjective: CHIEF COMPLAINTS TODAY : temperature 99.6, vss Complains of nausea and vomited once. c/o generalized abdominal pain Denies shortness of breath or chest pain. PATIENT ANXIOUS TO GO HOME ROS. HEENT : N. Resp : +ve cough, no wheezing ,pleuritic CP ,or hemoptysis Cardio : No anginal CP, PND, orthopnea, palpitation GI : +ve ABDOMINAL PAIN, n/v , NO diarrhea or GI bleeding . 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 Musculoskel : No joint swelling , Derm : No rash Psych : Normal affect. Ext : B/L SWELLING LE ,LT >RT ,NO calf pain PE. Pt. is alert awake in no distress. V.S As noted in the chart Head ,ear nose,throat and eyes : Normal. Neck : Supple with normal carotids. Lungs: DIMINISHED BREATH SOUNDS AT THE BASES. Heart : S1 & S2 normal with S4. No murmur. Abd : Soft GENERALIZED ABDOMINAL TENDERNESS ESPECIALLY LOWER QUADRANTS,with normal bowel sounds. Neuro : Moves all ext. with no localized deficit. Ext : +VE edema LE with intact pulses.Non tender calves Derm : No rashes or decubitus ulcer. LABS/RADIOLOGY: wbc 8.4, h&h 11.1 ESR 50, CRP >15 LFTS; TOTAL BILI 2.9 , DIRECT BILI 2.3, ast 61 alt 73 IMPROVING bLOOD CULTURES 10/14/16 NEGATIVE FOR 24 HOURS URINE CULTURES -VE GROWTH: ABDOMINAL ULTRASOUND 10/15/16 HEPATOMEGALY/HEPATO-STEATOSIS. Objective - Vital Signs/Intake and Output Vital Signs (last 24 hours): Temp Pulse Resp BP Pulse Ox 99.3 F 87 20 116/72 97 10/16/16 13:45 10/16/16 13:45 10/16/16 13:45 10/16/16 13:45 10/16/16 13:45 Intake and Output: 10/16/16 10/17/16 18:59 06:59 Intake Total 700 Balance 700 - Medications Medications: Current Medications Acetaminophen (Tylenol 325mg Tab) 650 mg PO Q6 PRN PRN Reason: Fever >100.4 F Last Admin: 10/14/16 21:00 Dose: 650 mg Heparin Sodium (Porcine) (Heparin) 5,000 units SC Q12 [facility] Last Admin: 10/16/16 11:00 Dose: 5,000 units Hydroxychloroquine Sulfate (Plaquenil) 200 mg PO BID [facility] Last Admin: 10/16/16 19:25 Dose: 200 mg Potassium Chloride 40 meq/ (Sodium Chloride) 1,020 mls @ 100 mls/hr IV .[id number] [facility] Last Admin: 10/16/16 20:08 Dose: 100 mls/hr Imipenem/Cilastatin Sodium 500 (mg/ Sodium Chloride) 100 mls @ 100 mls/hr IVPB Q8H [facility] Last Admin: 10/16/16 19:25 Dose: 100 mls/hr Vancomycin/Sodium Chloride (Vancocin) 200 mls @ 133.333 mls/hr IVPB Q24H [facility] Stop: 10/20/16 20:01 Last Admin: 10/16/16 20:10 Dose: 133.333 mls/hr Montelukast Sodium (Singulair) 10 mg PO HS [facility] Last Admin: 10/15/16 22:08 Dose: 10 mg Morphine Sulfate (Morphine) 2 mg IVP Q4 PRN PRN Reason: Pain, moderate (4-7) Last Admin: 10/16/16 11:44 Dose: 2 mg Ondansetron HCl (Zofran Inj) 4 mg IVP Q8H PRN PRN Reason: vomiting Last Admin: 10/15/16 15:07 Dose: 4 mg Pantoprazole Sodium (Protonix Inj) 40 mg IVP Q12H [facility] Last Admin: 10/16/16 19:29 Dose: 40 mg Paroxetine HCl (Paxil Cr) 25 mg PO DAILY [facility] Last Admin: 10/16/16 11:00 Dose: 25 mg Pregabalin (Lyrica) 75 mg PO Q12 [facility] Last Admin: 10/16/16 11:00 Dose: 75 mg Saccharomyces Boulardii (Florastor) 250 mg PO BID [facility] Last Admin: 10/16/16 19:24 Dose: 250 mg Fluticasone/Salmeterol (Advair Diskus 250/50) 1 puff IH RQ12 [facility] Last Admin: 10/16/16 19:50 Dose: 1 puff - Labs Labs: 10/16/16 07:10 10/15/16 11:24 PT 16.6 SECONDS (9.7-12.2) H 10/15/16 00:38 INR 1.5 10/15/16 00:38 APTT 71 SECONDS (21-34) H 10/15/16 00:38 Assessment and Plan (1) Pneumonia Assessment & Plan: ON iv pRIMAXIN 500 MG iv PIGGYBACK EVERY 6 HOURLY 10/15/16 ON iv VANCOMYCIN 1 G EVERY 24HRLY 10/15/16 F/U VANCO TROUGH IN A.M. pulmonary toilet. Status: Acute (2) Pyelonephritis, unspecified Assessment & Plan: patient on broad-spectrum antibiotics. Repeat urine cultures negative. Status: Acute (3) Leg swelling Status: Acute (4) Reflux esophagitis Status: Acute (5) Paraesophageal hiatal hernia Assessment & Plan: PATIENT HAS A LARGE PARAESOPHAGEAL HERNIA & HISTORY OF REFLUX ESOPHAGITIS. ELEVATED HEAD OF THE PATIENT WHILE FEEDING. CONTINUE PPI PER GI. patient still vomiting off and on Will discuss with GI. Status: Chronic (6) Hyperbilirubinemia Assessment & Plan: LFTs slowly improving. Status: Acute (7) History of lupus Status: Acute (8) Asthma Status: Acute
--- NOTE | 2016-10-16 23:31 | CP.PCM.PN ---
Subjective - Date & Time of Evaluation Date of Evaluation: 10/16/16 Time of Evaluation: 23:31 - Subjective Subjective: the fever is improving. Patient also to go home. I advised the patient that she isn't currently on antibiotic. Being seen by infectious disease Objective - Vital Signs/Intake and Output Vital Signs (last 24 hours): Temp Pulse Resp BP Pulse Ox 99.3 F 87 20 116/72 97 10/16/16 13:45 10/16/16 13:45 10/16/16 13:45 10/16/16 13:45 10/16/16 13:45 Intake and Output: 10/16/16 10/17/16 18:59 06:59 Intake Total 700 Balance 700 - Medications Medications: Current Medications Acetaminophen (Tylenol 325mg Tab) 650 mg PO Q6 PRN PRN Reason: Fever >100.4 F Last Admin: 10/14/16 21:00 Dose: 650 mg Heparin Sodium (Porcine) (Heparin) 5,000 units SC Q12 [facility] Last Admin: 10/16/16 22:13 Dose: 5,000 units Hydroxychloroquine Sulfate (Plaquenil) 200 mg PO BID [facility] Last Admin: 10/16/16 19:25 Dose: 200 mg Potassium Chloride 40 meq/ (Sodium Chloride) 1,020 mls @ 100 mls/hr IV .[id number] [facility] Last Admin: 10/16/16 20:08 Dose: 100 mls/hr Imipenem/Cilastatin Sodium 500 (mg/ Sodium Chloride) 100 mls @ 100 mls/hr IVPB Q8H [facility] Last Admin: 10/16/16 19:25 Dose: 100 mls/hr Vancomycin/Sodium Chloride (Vancocin) 200 mls @ 133.333 mls/hr IVPB Q24H [facility] Stop: 10/20/16 20:01 Last Admin: 10/16/16 20:10 Dose: 133.333 mls/hr Lorazepam (Ativan) 1 mg PO TID [facility] Montelukast Sodium (Singulair) 10 mg PO HS [facility] Last Admin: 10/16/16 22:12 Dose: 10 mg Morphine Sulfate (Morphine) 2 mg IVP Q4 PRN PRN Reason: Pain, moderate (4-7) Last Admin: 10/16/16 20:38 Dose: 2 mg Ondansetron HCl (Zofran Inj) 4 mg IVP Q8H PRN PRN Reason: vomiting Last Admin: 10/15/16 15:07 Dose: 4 mg Pantoprazole Sodium (Protonix Inj) 40 mg IVP Q12H [facility] Last Admin: 10/16/16 19:29 Dose: 40 mg Paroxetine HCl (Paxil Cr) 25 mg PO DAILY [facility] Last Admin: 10/16/16 11:00 Dose: 25 mg Pregabalin (Lyrica) 75 mg PO Q12 [facility] Last Admin: 10/16/16 22:11 Dose: Not Given Saccharomyces Boulardii (Florastor) 250 mg PO BID [facility] Last Admin: 10/16/16 19:24 Dose: 250 mg Fluticasone/Salmeterol (Advair Diskus 250/50) 1 puff IH RQ12 [facility] Last Admin: 10/16/16 19:50 Dose: 1 puff hest good air entry bilaterally. Antibiotic change. On antibiotic. - Labs Labs: 10/16/16 07:10 10/15/16 11:24 PT 16.6 SECONDS (9.7-12.2) H 10/15/16 00:38 INR 1.5 10/15/16 00:38 APTT 71 SECONDS (21-34) H 10/15/16 00:38 Assessment and Plan - Assessment and Plan (Free Text) Assessment: the sepsis, fever, unclear etiology. On antibiotic. Continue the current treatment
[2016-10-17 08:01] VITALS: BP 156/100; PULSE 86; TEMP 98.2; O2SAT 97
[2016-10-17] MEDS: Fluticasone-Salmeterol 250-50mcg Diskus IH SCH (08:14)
--- NOTE | 2016-10-17 08:48 | CP.PCM.PN ---
Subjective - Date & Time of Evaluation Date of Evaluation: 10/17/16 Time of Evaluation: 08:35 - Subjective Subjective: F/U vomiting and elev LFTs. Reports "spitting up". No vomiting. Denies fever, chills, SZ, loc ELIZALDE, cough Rb , melena,, Cp SOB Objective - Vital Signs/Intake and Output Vital Signs (last 24 hours): Temp Pulse Resp BP Pulse Ox 98.2 F 86 20 156/100 H 97 10/17/16 07:00 10/17/16 07:05 10/17/16 07:00 10/17/16 07:00 10/17/16 07:00 Intake and Output: 10/17/16 10/17/16 06:59 18:59 Intake Total 2425 Balance 2425 - Medications Medications: Current Medications Acetaminophen (Tylenol 325mg Tab) 650 mg PO Q6 PRN PRN Reason: Fever >100.4 F Last Admin: 10/14/16 21:00 Dose: 650 mg Heparin Sodium (Porcine) (Heparin) 5,000 units SC Q12 [facility] Last Admin: 10/16/16 22:13 Dose: 5,000 units Hydroxychloroquine Sulfate (Plaquenil) 200 mg PO BID [facility] Last Admin: 10/16/16 19:25 Dose: 200 mg Potassium Chloride 40 meq/ (Sodium Chloride) 1,020 mls @ 100 mls/hr IV .[id number] [facility] Last Admin: 10/16/16 20:08 Dose: 100 mls/hr Imipenem/Cilastatin Sodium 500 (mg/ Sodium Chloride) 100 mls @ 100 mls/hr IVPB Q8H [facility] Last Admin: 10/17/16 01:15 Dose: 100 mls/hr Vancomycin/Sodium Chloride (Vancocin) 200 mls @ 133.333 mls/hr IVPB Q24H [facility] Stop: 10/20/16 20:01 Last Admin: 10/16/16 20:10 Dose: 133.333 mls/hr Lorazepam (Ativan) 1 mg PO TID [facility] Montelukast Sodium (Singulair) 10 mg PO HS [facility] Last Admin: 10/16/16 22:12 Dose: 10 mg Morphine Sulfate (Morphine) 2 mg IVP Q4 PRN PRN Reason: Pain, moderate (4-7) Last Admin: 10/17/16 06:48 Dose: 2 mg Ondansetron HCl (Zofran Inj) 4 mg IVP Q8H PRN PRN Reason: vomiting Last Admin: 10/15/16 15:07 Dose: 4 mg Pantoprazole Sodium (Protonix Inj) 40 mg IVP Q12H [facility] Last Admin: 10/17/16 06:49 Dose: 40 mg Paroxetine HCl (Paxil Cr) 25 mg PO DAILY [facility] Last Admin: 10/16/16 11:00 Dose: 25 mg Pregabalin (Lyrica) 75 mg PO Q12 [facility] Last Admin: 10/16/16 22:11 Dose: Not Given Saccharomyces Boulardii (Florastor) 250 mg PO BID [facility] Last Admin: 10/16/16 19:24 Dose: 250 mg Fluticasone/Salmeterol (Advair Diskus 250/50) 1 puff IH RQ12 [facility] Last Admin: 10/16/16 19:50 Dose: 1 puff - Labs Labs: 10/16/16 07:10 10/15/16 11:24 PT 16.6 SECONDS (9.7-12.2) H 10/15/16 00:38 INR 1.5 10/15/16 00:38 APTT 71 SECONDS (21-34) H 10/15/16 00:38 - Constitutional Appears: Well - Respiratory Exam Respiratory Exam: Clear to Ausculation Bilateral - Cardiovascular Exam Cardiovascular Exam: RRR - GI/Abdominal Exam GI & Abdominal Exam: Soft, Normal Bowel Sounds. absent: Tenderness - Neurological Exam Neurological Exam: Alert, Awake - Psychiatric Exam Psychiatric exam: absent: Normal Affect, Suicidal Ideation Assessment and Plan (1) Abnormal transaminases Assessment & Plan: Improving. Sono- fatty liver. Repeat labs Status: Acute (2) Asthma Status: Acute (3) Left upper lobe pneumonia Status: Acute (4) Nausea and vomiting Assessment & Plan: Better. Status: Acute (5) Al's esophagus determined by endoscopy Status: Chronic (6) Paraesophageal hiatal hernia Status: Chronic (7) Sepsis Status: Acute
[2016-10-17] MEDS: Saccharomyces Boulardi 250 mg Cap PO SCH (09:54)
--- NOTE | 2016-10-17 12:36 | CP.PCM.PN ---
Subjective - Date & Time of Evaluation Date of Evaluation: 10/17/16 Time of Evaluation: 12:20 - Subjective Subjective: House Doc AMA Note: Patient has decided to leave the hospital against medical advice. The patient is competent and understands the risks of leaving, including permanent disability and/or , and has had an opportunity to ask questions about her condition. Patient accepts all risk and liability. Paper work filed. Attending notified by RN. The patient has been informed that he/she may return for care at any time, and patient will follow-up with PMD urgently. She was provided a script for Cipro 500mg PO BID #10 prior to leaving the hospital per Dr. Russell's request. Objective - Vital Signs/Intake and Output Vital Signs (last 24 hours): Temp Pulse Resp BP Pulse Ox 98.2 F 86 20 156/100 H 97 10/17/16 07:00 10/17/16 07:05 10/17/16 07:00 10/17/16 07:00 10/17/16 07:00 Intake and Output: 10/17/16 10/17/16 06:59 18:59 Intake Total 2425 Balance 2425 - Medications Medications: Current Medications Acetaminophen (Tylenol 325mg Tab) 650 mg PO Q6 PRN PRN Reason: Fever >100.4 F Last Admin: 10/14/16 21:00 Dose: 650 mg Heparin Sodium (Porcine) (Heparin) 5,000 units SC Q12 [facility] Last Admin: 10/17/16 09:54 Dose: 5,000 units Hydroxychloroquine Sulfate (Plaquenil) 200 mg PO BID [facility] Last Admin: 10/17/16 09:54 Dose: 200 mg Potassium Chloride 40 meq/ (Sodium Chloride) 1,020 mls @ 100 mls/hr IV .[id number] [facility] Last Admin: 10/16/16 20:08 Dose: 100 mls/hr Imipenem/Cilastatin Sodium 500 (mg/ Sodium Chloride) 100 mls @ 100 mls/hr IVPB Q8H [facility] Last Admin: 10/17/16 10:04 Dose: 100 mls/hr Vancomycin/Sodium Chloride (Vancocin) 200 mls @ 133.333 mls/hr IVPB Q24H [facility] Stop: 10/20/16 20:01 Last Admin: 10/16/16 20:10 Dose: 133.333 mls/hr Lorazepam (Ativan) 1 mg PO TID [facility] Last Admin: 10/17/16 10:10 Dose: Not Given Montelukast Sodium (Singulair) 10 mg PO HS [facility] Last Admin: 10/16/16 22:12 Dose: 10 mg Morphine Sulfate (Morphine) 2 mg IVP Q4 PRN PRN Reason: Pain, moderate (4-7) Last Admin: 10/17/16 06:48 Dose: 2 mg Ondansetron HCl (Zofran Inj) 4 mg IVP Q8H PRN PRN Reason: vomiting Last Admin: 10/15/16 15:07 Dose: 4 mg Pantoprazole Sodium (Protonix Inj) 40 mg IVP Q12H [facility] Last Admin: 10/17/16 06:49 Dose: 40 mg Paroxetine HCl (Paxil Cr) 25 mg PO DAILY [facility] Last Admin: 10/17/16 09:54 Dose: 25 mg Pregabalin (Lyrica) 75 mg PO Q12 [facility] Last Admin: 10/17/16 09:54 Dose: 75 mg Saccharomyces Boulardii (Florastor) 250 mg PO BID [facility] Last Admin: 10/17/16 09:54 Dose: 250 mg Fluticasone/Salmeterol (Advair Diskus 250/50) 1 puff IH RQ12 [facility] Last Admin: 10/16/16 19:50 Dose: 1 puff - Labs Labs: 10/16/16 07:10 10/15/16 11:24 PT 16.6 SECONDS (9.7-12.2) H 10/15/16 00:38 INR 1.5 10/15/16 00:38 APTT 71 SECONDS (21-34) H 10/15/16 00:38 - Additional Findings Additional findings: - Constitutional Appears: Chronically Ill -Appearing pale and moderately SOB. - Head Exam Head Exam: ATRAUMATIC, NORMOCEPHALIC - Eye Exam Eye Exam: EOMI, PERRL. absent: Scleral icterus - ENT Exam ENT Exam: Mucous Membranes Moist - Respiratory Exam Respiratory Exam: Decreased Breath Sounds, Wheezes. absent: Rhonchi - Cardiovascular Exam Cardiovascular Exam: REGULAR RHYTHM, +S1, +S2 - GI/Abdominal Exam GI & Abdominal Exam: Distended, Normal Bowel Sounds, Soft, Tenderness (mild epigastric). absent: Guarding, Organomegaly, Rebound, Tenderness - Extremities Exam Extremities exam: Positive for: pedal edema - Neurological Exam Neurological exam: Oriented x3 - Psychiatric Exam Psychiatric exam: Agitated, Flat Affect - Skin Skin Exam: Cyanosis, Warm, Intact
--- NOTE | 2016-10-17 16:30 | CARD ---
APPROVED REPORT EKG Measurement Heart [id number] <Conclusion> Normal sinus rhythm Prolonged QT Abnormal ECG
[2016-10-19 06:38] LABS: HAV AB (IGM) Nonreactive (Nonreactive)
--- NOTE | 2016-11-02 22:51 | CP.PCM.DIS ---
Provider - Provider Date of Admission: 10/14/16 13:14 Attending physician: Herminia Russell MD Time Spent in preparation of Discharge (in minutes): 45 Hospital Course - Lab Results Lab Results: Micro Results 10/14/16 22:01 Blood-Venous Blood Culture - Final NO GROWTH AFTER 5 DAYS 10/14/16 22:01 Blood-Venous Gram Stain - Final 10/14/16 22:01 Blood-Venous Blood Culture - Final NO GROWTH AFTER 5 DAYS 10/14/16 22:01 Blood-Venous Gram Stain - Final TEST NOT PERFORMED 10/15/16 Unknown Naris MRSA Culture (Admit) - Final MRSA NOT DETECTED 10/15/16 06:00 Urine,Catheterized Urine Culture - Final No Growth (<1,000 CFU/ML) Most Recent Lab Values WBC 8.4 K/uL (4.8-10.8) 10/16/16 07:10 RBC 3.52 Mil/uL (3.80-5.20) L 10/16/16 07:10 Hgb 11.1 g/dL (11.0-16.0) 10/16/16 07:10 Hct 33.0 % (34.0-47.0) L 10/16/16 07:10 MCV 93.8 fL (81.0-99.0) 10/16/16 07:10 MCH 31.5 pg (27.0-31.0) H 10/16/16 07:10 MCHC 33.6 g/dL (33.0-37.0) 10/16/16 07:10 RDW 13.1 % (11.5-14.5) 10/16/16 07:10 Plt Count 119 K/uL (130-400) L 10/16/16 07:10 MPV 10.1 fL (7.2-11.7) 10/16/16 07:10 Neut % (Auto) 74.0 % (50.0-75.0) 10/16/16 07:10 Lymph % (Auto) 12.0 % (20.0-40.0) L 10/16/16 07:10 [place] % (Auto) 5.7 % (0.0-10.0) 10/16/16 07:10 Eos % (Auto) 8.0 % (0.0-4.0) H 10/16/16 07:10 Baso % (Auto) 0.3 % (0.0-2.0) 10/16/16 07:10 Neut # 6.3 K/uL (1.8-7.0) 10/16/16 07:10 Lymph # 1.0 K/uL (1.0-4.3) 10/16/16 07:10 [place] # 0.5 K/uL (0.0-0.8) 10/16/16 07:10 Eos # 0.7 K/uL (0.0-0.7) 10/16/16 07:10 Baso # 0.0 K/uL (0.0-0.2) 10/16/16 07:10 Neutrophils % (Manual) 75 % (50-75) 10/15/16 11:24 Band Neutrophils % 10 % (0-2) H 10/15/16 11:24 Lymphocytes % (Manual) 4 % (20-40) L 10/15/16 11:24 Monocytes % (Manual) 4 % (0-10) 10/15/16 11:24 Eosinophils % (Manual) 7 % (0-4) H 10/15/16 11:24 Basophils % (Manual) 1 % (0-2) 10/14/16 21:35 Myelocytes % 1 % (0-0) H 10/14/16 21:35 Differential Comment 10/16/16 07:10 Platelet Estimate Normal (NORMAL) 10/15/16 11:24 Large Platelets Present 10/15/16 11:24 Hypochromasia (manual) Slight 10/15/16 11:24 Poikilocytosis (manual Slight 10/15/16 11:24 Anisocytosis (manual) Slight 10/15/16 11:24 Microcytosis (manual) Slight 10/14/16 21:35 ESR 50 mm/hr (0-20) H 10/16/16 07:10 PT 16.6 SECONDS (9.7-12.2) H 10/15/16 00:38 INR 1.5 10/15/16 00:38 APTT 71 SECONDS (21-34) H 10/15/16 00:38 D-Dimer, Quantitative 609 ng/mlDDU (0-243) H 10/11/16 13:06 pO2 61 mm/Hg (30-55) H 10/15/16 00:12 VBG pH 7.45 (7.32-7.43) H 10/15/16 00:12 VBG pCO2 38 mmHg (40-60) L 10/15/16 00:12 VBG HCO3 26.7 mmol/L 10/15/16 00:12 VBG Total CO2 27.6 mmol/L (22-28) 10/15/16 00:12 VBG O2 Sat (Calc) 95.9 % (40-65) H 10/15/16 00:12 VBG Base Excess 2.4 mmol/L (0.0-2.0) H 10/15/16 00:12 VBG Potassium 2.1 mmol/L (3.6-5.2) L* 10/15/16 00:12 Sodium 135.0 mmol/l (132-148) 10/15/16 00:12 Chloride 103.0 mmol/L (98-107) 10/15/16 00:12 Glucose 129 mg/dl (65-105) H 10/15/16 00:12 Lactate 0.8 mmol/L (0.7-2.1) 10/15/16 00:12 Crit Value Called To Prudent rn 10/15/16 00:12 Crit Value Called By Dung gutierrez barge pilot 10/15/16 00:12 Crit Value Read Back Y 10/15/16 00:12 Blood Gas Notified Time 36 10/15/16 00:12 Sodium 131 mmol/L (132-148) L 10/15/16 11:24 Potassium 3.6 mmol/L (3.6-5.2) 10/15/16 11:24 Chloride 95 mmol/L (98-107) L 10/15/16 11:24 Carbon Dioxide 24 mmol/L (22-30) 10/15/16 11:24 Anion Gap 16 (10-20) 10/15/16 11:24 BUN 8 mg/dL (7-17) 10/15/16 11:24 Creatinine 0.7 MG/DL (0.7-1.2) 10/15/16 11:24 Est GFR ( Amer) > 60 10/15/16 11:24 Est GFR (Non-Af Amer) > 60 10/15/16 11:24 POC Glucose (mg/dL) 98 mg/dL (65-110) 10/16/16 16:55 Random Glucose 115 mg/dL (65-105) H 10/15/16 11:24 Lactic Acid 2.4 mmol/L (0.7-2.1) H 10/14/16 21:08 Calcium 7.4 mg/dl (8.6-10.4) L 10/15/16 11:24 Magnesium 1.7 mg/dL (1.6-2.3) 10/15/16 11:24 Total Bilirubin 2.9 mg/dL (0.2-1.3) H 10/16/16 07:10 Direct Bilirubin 2.3 mg/dL (0.0-0.4) H 10/16/16 07:10 AST 61 U/L (14-36) H D 10/16/16 07:10 ALT 73 U/L (9-52) H 10/16/16 07:10 Alkaline Phosphatase 67 U/L (38-126) 10/16/16 07:10 Total Creatine Kinase 27 U/L (30-135) L 10/11/16 13:06 CK-MB (Mass) 3.61 ng/mL (0.0-3.38) H 10/11/16 13:06 Troponin I < 0.0120 ng/mL (0.00-0.120) 10/11/16 13:06 C-React Prot High Sens > 15.00 mg/L (1.00-3.00) H 10/16/16 07:10 Total Protein 4.9 g/dL (6.3-8.3) L 10/16/16 07:10 Albumin 2.8 g/dL (3.5-5.0) L 10/16/16 07:10 Globulin 2.1 gm/dL (2.2-3.9) L 10/16/16 07:10 Albumin/Globulin Ratio 1.3 (1.0-2.1) 10/16/16 07:10 Venous Blood Potassium 2.1 mmol/L (3.6-5.2) L* 10/15/16 00:12 Urine Color Yellow (YELLOW) 10/15/16 02:38 Urine Clarity Clear (Clear) 10/15/16 02:38 Urine pH 5.0 (5.0-8.0) 10/15/16 02:38 Ur Specific [place] 1.004 (1.003-1.030) 10/15/16 02:38 Urine Protein Negative mg/dL (NEGATIVE) 10/15/16 02:38 Urine Glucose (UA) Normal mg/dL (Normal) 10/15/16 02:38 Urine Ketones Negative mg/dL (NEGATIVE) 10/15/16 02:38 Urine Blood Negative (NEGATIVE) 10/15/16 02:38 Urine Nitrate Negative (NEGATIVE) 10/15/16 02:38 Urine Bilirubin Negative (NEGATIVE) 10/15/16 02:38 Urine Urobilinogen Normal mg/dL (0.2-1.0) 10/15/16 02:38 Ur Leukocyte Esterase Neg [place]/uL (Negative) 10/15/16 02:38 Urine WBC (Auto) 3 /hpf (0-5) 10/15/16 02:38 Urine RBC (Auto) < 1 /hpf (0-3) 10/15/16 02:38 Ur Squamous Epith Cells 2 /hpf (0-5) 10/15/16 02:38 Ur Transition Epith Cell < 1 /hpf (0-3) 10/14/16 22:13 Urine Bacteria Occ (<OCC) H 10/14/16 22:13 Stool Occult Blood Negative (NEGATIVE) 10/15/16 10:31 CLARISSE 6 Profile Positive (NEGATIVE) H 10/16/16 07:10 CLARISSE Titer 1:160 H 10/16/16 07:10 CLARISSE Pattern Centromere H 10/16/16 07:10 Double Strand DNA Ab <1 IU/mL (()) 10/16/16 07:10 Hepatitis A IgM Ab Nonreactive (Nonreactive) 10/16/16 07:10 Hepatitis A Ab Total Reactive (Nonreactive) H 10/16/16 07:10 Hep Bs Antigen Negative (NEGATIVE) 10/16/16 07:10 Hep Bs Antibody Negative (NEGATIVE) 10/16/16 07:10 Hep B Core IgM Ab Negative (NEGATIVE) 10/16/16 07:10 Hepatitis C Antibody Negative (NEGATIVE) 10/16/16 07:10 - Hospital Course Hospital Course: the patient is a 61-year-old female admitted to the hospital with a history of hypertension sleep apnea asthma COPD severe osteoarthritis has fibromyalgia back pain with a fever. Patient initially hospitalized with the ongoing pneumonia, but CAT scan of the chest did not reveal any acute pathology. Meanwhile patient developed a severe fever, chills, and the suspected pyelonephritis. Patient started on empirical antibiotic. In spite of that the symptoms did not get better. Infectious disease evaluation was called. Antibiotic such as due to imipenem, vancomycin. Patient is responding. But the patient does not want to stay in the hospital, and she signed AGAINST MEDICAL ADVICE. Final diagnosis sepsis fever unclear etiology. I spoke to the patient in details about that. But patient is adamant to go home. I advised her that she will follow-up in my office in case if there is any worsening condition. We'll follow the patient Discharge Exam - Head Exam Head Exam: NORMAL INSPECTION Discharge Plan - Follow Up Plan Condition: STABLE Disposition: AGAINST MEDICAL ADVICE
== END 2016-10-17 12:44 | disposition left against medical advice (07) | DRG 872 ==
LOC: C.ER 10:26 → C.9E 15:06 → C.6T 18:19 → OBSVTOIN 10-14 13:14
PROVIDERS: ADMIT Internal Medicine; ATTEND Internal Medicine
DX: A41.9 Sepsis, unspecified organism (principal); I10 Essential (primary) hypertension; N12 Tubulo-interstitial nephritis, not specified as acute or chronic; N39.0 Urinary tract infection, site not specified; J44.9 Chronic obstructive pulmonary disease, unspecified; E80.6 Other disorders of bilirubin metabolism; R10.13 Epigastric pain; M79.89 Other specified soft tissue disorders; R11.2 Nausea with vomiting, unspecified; J45.909 Unspecified asthma, uncomplicated; K21.9 Gastro-esophageal reflux disease without esophagitis; Z91.14 Patient's other noncompliance with medication regimen; M79.7 Fibromyalgia; L93.0 Discoid lupus erythematosus; M81.0 Age-related osteoporosis without current pathological fracture; M06.9 Rheumatoid arthritis, unspecified; G47.30 Sleep apnea, unspecified; M19.90 Unspecified osteoarthritis, unspecified site; F41.9 Anxiety disorder, unspecified

== ENCOUNTER 2016-10-23 11:18 | Inpatient (IN) | payer MEDICARE, MEDICAID ==
[2016-10-23 11:18] VITALS: BMI 33.1
[2016-10-23] MEDS ORDERED: Sodium Chloride 0.9% 1,000 ML IV ONE (12:14)
--- NOTE | 2016-10-23 12:14 | C.PDOC ---
History Of Present Illness 61-year-old female, presents to the emergency department with complaints of recurring fever, generalized malaise, and swelling. Denies cough. Patient recently admitted for fever w/ unknown origin. Denies home O2 use. RECUR FEVER, GEN MALAISE, SWELL. NO COUGH. RECENT ADMISSION FOR FEVER UNK ORIG. DENIES HOME O2 USE EXAM EXT EDEMA 2+ PITTING LUNGS NEG REMAINDER NEG Time Seen by Provider: 10/23/16 11:29 Chief Complaint (Nursing): Shortness Of Breath History Per: Patient History/Exam Limitations: no limitations Onset/Duration Of Symptoms: Days Current Symptoms Are (Timing): Still Present Past Medical History Reviewed: Historical Data, Nursing Documentation, Vital Signs Vital Signs: Last Vital Signs Temp 98.7 F 10/23/16 13:25 Pulse 86 10/23/16 13:25 Resp 21 10/23/16 13:25 BP 114/61 10/23/16 13:25 Pulse Ox 92 L 10/23/16 13:25 - Medical History PMH: Anemia, Anxiety, Arthritis, Asthma, Back Problems, Bipolar Disorder, Bronchitis, COPD, Depression, Fibromyalgia, Fractures, Gastritis, Gastrointestinal Ulcer, Gall Bladder Disease (under diagnosis), HTN, Hypercholesterolemia, Osteoporosis, Pneumonia, Rheumatoid Arthritis, Sleep Apnea (CPAP @ 15) Denies: Crohn's Disease, Diverticulitis, Pancreatitis, Chronic Kidney Disease - [facility] Procedures ENDOSCOPIC BRONCHIAL BX (09/07/13) ESOPHAGOGASTRODUODENOSCOPY [EGD] W/CLOSED BIOPSY (08/15/13) NON-INVASIVE MECHANICAL VENTILATION (06/26/14) Family History: States: Unknown Family Hx - Social History Hx Tobacco Use: No Hx Alcohol Use: No Hx Substance Use: No - Immunization History Hx Tetanus Toxoid Vaccination: Yes Hx Influenza Vaccination: Yes Hx Pneumococcal Vaccination: No Review Of Systems Except As Marked, All Systems Reviewed And Found Negative. Constitutional: Positive for: Fever, Malaise Respiratory: Negative for: Shortness of Breath Gastrointestinal: Negative for: Nausea, Vomiting, Abdominal Pain Musculoskeletal: Negative for: Back Pain Skin: Negative for: Rash Neurological: Negative for: Weakness, Numbness, Headache, Dizziness Physical Exam - Physical Exam Appears: Non-toxic, No Acute Distress Skin: Warm, Dry, No Rash Head: Atraumatic, Normacephalic Eye(s): bilateral: Normal Inspection, PERRL Nose: Normal Oral Mucosa: Moist Lips: Normal Appearing Neck: Normal ROM Cardiovascular: Rhythm Regular Respiratory: Normal Breath Sounds, No Accessory Muscle Use Extremity: Normal ROM, Pedal Edema (2+ pitting.) Neurological/Psych: Oriented x3, Normal Speech ED Course And Treatment - Laboratory Results Result Diagrams: 10/23/16 12:24 10/23/16 12:24 ECG: Interpreted By Me ECG Rhythm: Sinus Tachycardia Rate From EC O2 Sat by Pulse Oximetry: 92 Pulse Ox Interpretation: Abnormal - Radiology CXR: Interpreted by Me CXR Interpretation: Yes: No Acute Disease Progress - Re-Evaluation Re-evaluation Note: 10/23/16 12:16 D/W PMD PT RECENTLY LEFT AMA TX FOR PYELO, CONT PRIMAXIN AND VANCO - Data Reviewed Data Reviewed: Lab, Diagnostic imaging, EKG, Old records Disposition Counseled Patient/Family Regarding: Studies Performed, Diagnosis - Disposition Disposition: HOSPITALIZED Disposition Time: 12:51 Condition: STABLE - POA Present On Arrival: None - Clinical Impression Clinical Impression: Fever, Hypokalemia - Scribe Statement The provider has reviewed the documentation as recorded by the Do Reed All medical record entries made by the Tyreseibe were at my direction and personally dictated by me. I have reviewed the chart and agree that the record accurately reflects my personal performance of the history, physical exam, medical decision making, and the department course for this patient. I have also personally directed, reviewed, and agree with the discharge instructions and disposition. Decision To Admit - Pt Status Changed To: Hospital Disposition Of: Inpatient - Admit Certification Admit to Inpatient:: After my assessment, the patient will require hospitalization for at least two midnights. This is because of the severity of symptoms shown, intensity of services needed, and/or the medical risk in this patient being treated as an outpatient. - InPatient: Physician Admission Certification: I certify that this patient requires 2 or more midnights of care for the following reason:: SEE NOTE - . Bed Request Type: Regular Admitting Physician: Herminia Russell Patient Diagnosis: Fever, Hypokalemia
[2016-10-23 12:30] LABS: BASO % 0.2 % (0.0-2.0); EOS # 0.6 K/uL (0.0-0.7); HEMATOCRIT 33.6 % (34.0-47.0); LYMPH # 1.2 K/uL (1.0-4.3); LYMPH % 11.8 % (20.0-40.0); MEAN CELL VOLUME 95.7 fL (81.0-99.0); MEAN CORPUSCULAR HEMOGLOBIN 32.3 pg (27.0-31.0); MEAN CORPUSCULAR HGB CONC 33.7 g/dL (33.0-37.0); MEAN PLATELET VOLUME 9.6 fL (7.2-11.7); MONO # 0.4 K/uL (0.0-0.8); MONO % 3.7 % (0.0-10.0); RED CELL DISTRIBUTION WIDTH 13.3 % (11.5-14.5); WHITE BLOOD COUNT 10.5 K/uL (4.8-10.8)
[2016-10-23] MEDS ORDERED: Sodium Chloride 0.9% 1,000 ML ONE (12:32)
--- NOTE | 2016-10-23 12:35 | RAD ---
HISTORY: SOB COMPARISON: Chest x-ray performed 10/15/09 TECHNIQUE: Chest, one view. FINDINGS: Examination limited by habitus. LUNGS: Bibasilar atelectasis. No focal consolidation. Please note that chest x-ray has limited sensitivity for the detection of pulmonary masses. PLEURA: No significant pleural effusion identified. No definite pneumothorax . CARDIOVASCULAR: Heart size appears top normal. OSSEOUS STRUCTURES: Give changes P VISUALIZED UPPER ABDOMEN: Unremarkable. OTHER FINDINGS: None. IMPRESSION: Bibasilar atelectasis.
[2016-10-23 12:38] LABS: VENOUS BLOOD GAS BASE EXCESS -0.1 mmol/L (0.0-2.0); VENOUS BLOOD GAS PCO2 36 mmHg (40-60); VENOUS BLOOD PH 7.43 (7.32-7.43)
[2016-10-23 12:41] LABS: CHLORIDE 100 mmol/L (98-107)
[2016-10-23 12:42] LABS: SODIUM 140 mmol/L (132-148)
[2016-10-23 12:44] LABS: BILIRUBIN,TOTAL 0.7 mg/dL (0.2-1.3); CARBON DIOXIDE 24 mmol/L (22-30); GFR AFRICAN-AMERICAN > 60
[2016-10-23 12:45] LABS: ALB/GLOB RATIO 1.1 (1.0-2.1); ALKALINE PHOSPHATASE 72 U/L (38-126); ALT/SGPT 31 U/L (9-52); AST/SGOT 45 U/L (14-36); BLOOD UREA NITROGEN 5 mg/dL (7-17); CALCIUM 8.2 mg/dl (8.6-10.4); GLUCOSE,RANDOM 82 mg/dL (65-105); TOTAL PROTEIN 6.3 g/dL (6.3-8.3)
[2016-10-23] MEDS ORDERED: Potassium Chloride 20 mEq/15 ml LIQ UD PO STA (12:50)
[2016-10-23] MEDS ORDERED: Potassium Chloride 10 mEq 100 ML IV ONE (12:50)
[2016-10-23] MEDS ORDERED: Potassium Chloride 20 mEq ER Tab PO ONE (12:56)
[2016-10-23] MEDS ORDERED: Potassium Chloride 10 mEq 100 ML IVPB ONE (12:56)
[2016-10-23 17:24] LABS: RBC URINE < 1 /hpf (0-3); URINE BACTERIA RARE (<OCC); URINE BILIRUBIN NEGATIVE (NEGATIVE); URINE BLOOD NEGATIVE (NEGATIVE); URINE COLOR Straw (YELLOW); URINE GLUCOSE (UA) NORMAL (Normal); URINE KETONE NEGATIVE (NEGATIVE); URINE LEUKOCYTE ESTERASE NEG Leu/uL (Negative); URINE PROTEIN NEGATIVE (NEGATIVE); URINE UROBILINOGEN NORMAL mg/dL (0.2-1.0); WBC URINE 2 /hpf (0-5)
[2016-10-23] MEDS ORDERED: Albuterol-Ipratrop 3 mg / 0.5 (3 ml) UD INH PRN (20:22)
[2016-10-23] MEDS ORDERED: Home Med 1 UNIT (Oxycodone Hcl/Acetaminophen [Percocet 10-325 Mg Tablet] 1 EACH) PO SCH (22:00)
[2016-10-24] MEDS: Albuterol-Ipratrop 3 mg / 0.5 (3 ml) UD INH SCH ×4 (01:49→19:16)
[2016-10-24] MEDS: Fluticasone-Salmeterol 250-50mcg Diskus IH SCH ×2 (13:25→19:16)
[2016-10-24] MEDS: Promethazine 12.5 mg/10 ml Syrup PO PRN (14:51)
[2016-10-24] MEDS ORDERED: Albuterol-Ipratrop 3 mg / 0.5 (3 ml) UD INH STA (15:16)
[2016-10-24] MEDS: MethylPREDNISolone 40 mg Vial IVP SCH ×2 (15:21→21:54)
--- NOTE | 2016-10-24 16:49 | CP.PCM.HP ---
History of Present Illness - History of Present Illness History of Present Illness: chief complaint: Shortness of breath. History present illness: 61-year-old female with history of hypertension diabetes hypothyroidism, obstructive sleep apnea chronic osteoarthritis, lupus disorder, rheumatoid arthritis, recently hospitalized with acute febrile illness. Patient was also had an episode of pyelonephritis, was receiving intravenous antibiotic but the patient signed AGAINST MEDICAL ADVICE and left the hospital last week. Patient was getting oral antibiotic ciprofloxacin. But the patient came to the emergency room with the increasing symptoms of diarrhea, nausea, abdominal pain, not feeling well, fever, chills, shortness of breath, cough with mucus production. Patient in the emergency room by evaluated. Patient was placed on oxygen. Started on IV fluid and antibiotic. Today patient is having increasing symptoms of cough, mucus production, shortness of breath and fever. Diarrhea also noted. No vomiting or no nausea noted. Bilateral leg swelling and leg pain, anxiety noted. Present on Admission - Present on Admission Any Indicators Present on Admission: No History of DVT/PE: No History of Uncontrolled Diabetes: No Urinary Catheter: No Decubitus Ulcer Present: No Review of Systems - Review of Systems All systems: reviewed and no additional remarkable complaints except Review of Systems: patient is complaining of increasing shortness of breath. patient is also having some palpitation. Denies any chest pain, but coughing with the mucus production. Leg swelling also noted leg pain present diarrhea present Past Patient History - Infectious Disease Hx of Infectious Diseases: None - Past Medical History & Family History Past Medical History?: Yes Past Family History: Reviewed and not pertinent - Past Social History Smoking Status: Former Smoker - CARDIAC Hx Hypercholesterolemia: Yes Hx Hypertension: Yes - PULMONARY Hx Asthma: Yes Hx Bronchitis: Yes Hx Chronic Obstructive Pulmonary Disease (COPD): Yes Hx Pneumonia: Yes Hx Sleep Apnea: Yes (CPAP @ 15) - NEUROLOGICAL Hx Neurological Disorder: Yes Hx Dizziness: Yes Hx Syncope: Yes - HEENT Hx HEENT Problems: No - RENAL Hx Chronic Kidney Disease: No - ENDOCRINE/METABOLIC Hx Endocrine Disorders: Yes Hx Systemic Lupus Erythematosus: Yes - HEMATOLOGICAL/ONCOLOGICAL Hx Anemia: Yes - INTEGUMENTARY Hx Dermatological Problems: No - MUSCULOSKELETAL/RHEUMATOLOGICAL Hx Arthritis: Yes Hx Back Pain: Yes Hx Falls: Yes Hx Fractures: Yes Hx Osteoporosis: Yes Hx Rheumatoid Arthritis: Yes - GASTROINTESTINAL Hx Crohn's Disease: No Hx Diverticulitis: No Hx Gall Bladder Disease: Yes (under diagnosis) Hx Gastritis: Yes Hx Pancreatitis: No - GENITOURINARY/GYNECOLOGICAL Hx Genitourinary Disorders: Yes Hx Uterine Cancer: Yes - PSYCHIATRIC Hx Anxiety: Yes Hx Bipolar Disorder: Yes Hx Depression: Yes Hx Substance Use: No - SURGICAL HISTORY Hx Surgeries: Yes Hx Orthopedic Surgery: Yes (right elbow with metal fixation) - ANESTHESIA Hx Anesthesia: Yes Hx Anesthesia Reactions: No Hx Malignant Hyperthermia: No Meds Allergies/Adverse Reactions: Allergies Allergy/AdvReac Type Severity Reaction Status Date / Time No Known Allergies Allergy Verified 10/11/16 10:58 Physical Exam - Constitutional Additional comments: on examination: Patient is somewhat less. Distress noted. Coughing present. Placed on BiPAP. Leg swelling negative. Oxygen saturation is 98%with the BiPAP. but mild tachypnea noted. Results - Vital Signs Recent Vital Signs: Last Vital Signs Temp 98.5 F 10/24/16 07:50 Pulse 92 H 10/24/16 15:59 Resp 20 10/24/16 07:50 BP 128/83 10/24/16 07:50 Pulse Ox 96 10/24/16 07:50 - Labs Result Diagrams: 10/23/16 12:24 10/23/16 12:24 Labs: Laboratory Results - last 24 hr 10/23/16 17:18 Urine Color Straw Urine Clarity Clear Urine pH 6.0 Ur Specific [place] 1.003 Urine Protein Negative Urine Glucose (UA) Normal Urine Ketones Negative Urine Blood Negative Urine Nitrate Negative Urine Bilirubin Negative Urine Urobilinogen Normal Ur Leukocyte Esterase Neg Urine WBC (Auto) 2 Urine RBC (Auto) < 1 Ur Squamous Epith Cells 3 Urine Bacteria Rare - Impressions Impression: chest x-ray currently pending Assessment & Plan (1) Asthma Assessment and Plan: patient is currently having possible acute exacerbation of bronchial asthma, associate with the acute bronchitis. We'll get a chest x-ray. Start the patient on antibiotic. Bronchial dilators. Intravenous corticosteroids. We'll monitor the glucose. Status: Acute (2) Chr obstructive pulmonary disease w/ acute lower respiratory infxn Assessment and Plan: patient with a possible obstructive sleep apnea. We'll place the patient on BiPAP. And will follow the patient Status: Acute (3) Fever Status: Acute
[2016-10-24 16:55] LABS: BASO % 0.4 % (0.0-2.0); EOS # 0.3 K/uL (0.0-0.7); EOS % 4.5 % (0.0-4.0); HEMATOCRIT 33.1 % (34.0-47.0); LYMPH # 0.9 K/uL (1.0-4.3); LYMPH % 14.4 % (20.0-40.0); MEAN CELL VOLUME 95.1 fL (81.0-99.0); MEAN CORPUSCULAR HEMOGLOBIN 31.2 pg (27.0-31.0); MEAN CORPUSCULAR HGB CONC 32.8 g/dL (33.0-37.0); MEAN PLATELET VOLUME 9.5 fL (7.2-11.7); MONO # 0.3 K/uL (0.0-0.8); MONO % 4.9 % (0.0-10.0); NRBC % 0.2 % (0.0-2.0); RED CELL DISTRIBUTION WIDTH 13.6 % (11.5-14.5); WHITE BLOOD COUNT 6.3 K/uL (4.8-10.8)
[2016-10-24 17:13] LABS: CHLORIDE 101 mmol/L (98-107); POTASSIUM 2.9 mmol/L (3.6-5.2); SODIUM 139 mmol/L (132-148)
[2016-10-24 17:15] LABS: GFR AFRICAN-AMERICAN > 60
[2016-10-24 17:16] LABS: ALB/GLOB RATIO 1.1 (1.0-2.1); ALKALINE PHOSPHATASE 65 U/L (38-126); ALT/SGPT 23 U/L (9-52); AST/SGOT 40 U/L (14-36); BILIRUBIN,TOTAL 0.5 mg/dL (0.2-1.3); BLOOD UREA NITROGEN 3 mg/dL (7-17); CALCIUM 7.8 mg/dl (8.6-10.4); CARBON DIOXIDE 26 mmol/L (22-30); GLUCOSE,RANDOM 91 mg/dL (65-105); TOTAL PROTEIN 6.1 g/dL (6.3-8.3)
--- NOTE | 2016-10-24 17:23 | RAD ---
HISTORY: asthma COMPARISON: Chest x-ray performed 10/23/16 TECHNIQUE: Chest, one view. FINDINGS: Examination limited by habitus. LUNGS: Mild interstitial prominence may reflect infection or edema. Please note that chest x-ray has limited sensitivity for the detection of pulmonary masses. PLEURA: No significant pleural effusion identified. No definite pneumothorax . CARDIOVASCULAR: Heart size appears top normal. Atherosclerotic calcifications of the aorta. OSSEOUS STRUCTURES: Degenerative changes. Acromioclavicular arthropathy. VISUALIZED UPPER ABDOMEN: Unremarkable. OTHER FINDINGS: None. IMPRESSION: Interstitial prominence may reflect infection or edema.
[2016-10-24] MEDS: Oxycodone/Acetaminophen 5/325 mg Tab PO PRN (18:07)
[2016-10-24] MEDS ORDERED: Potassium Chloride 20 mEq ER Tab PO STA (23:42)
[2016-10-25] MEDS ORDERED: Potassium Chloride 10 mEq 100 ML IVPB ONE ×3 (00:30→02:30)
[2016-10-25] MEDS: Albuterol-Ipratrop 3 mg / 0.5 (3 ml) UD INH SCH ×4 (01:14→20:34)
[2016-10-25] MEDS: Promethazine 12.5 mg/10 ml Syrup PO PRN ×3 (05:39→21:21)
[2016-10-25] MEDS: MethylPREDNISolone 40 mg Vial IVP SCH ×2 (09:37→21:20)
[2016-10-25] MEDS: Oxycodone/Acetaminophen 5/325 mg Tab PO PRN (10:15)
[2016-10-25] MEDS: Fluticasone-Salmeterol 250-50mcg Diskus IH SCH ×2 (10:17→19:39)
--- NOTE | 2016-10-25 12:45 | CARD ---
APPROVED REPORT EKG Measurement Heart [id number] <Conclusion> Sinus tachycardia Otherwise normal ECG
[2016-10-25 15:06] LABS: CHLORIDE 107 mmol/L (98-107); POTASSIUM 3.8 mmol/L (3.6-5.2); SODIUM 141 mmol/L (132-148)
[2016-10-25 15:08] LABS: GFR AFRICAN-AMERICAN > 60
[2016-10-25 15:09] LABS: BLOOD UREA NITROGEN 4 mg/dL (7-17); CALCIUM 8.2 mg/dl (8.6-10.4); CARBON DIOXIDE 21 mmol/L (22-30); GLUCOSE,RANDOM 175 mg/dL (65-105)
--- NOTE | 2016-10-25 15:36 | PCM.SURG1 ---
Surgeon's Initial Post Op Note - Surgeon's Notes Surgeon: Teodoro Odonnell MD Stock Control Supervisor: NONE Type of Anesthesia: Local Pre-Operative Diagnosis: Pyelonephritis Operative Findings: Patent right basilic vein. Post-Operative Diagnosis: Pyelonephritis Operation Performed: Right basilic vein single lumen picc placement, 34 cm. Tip in SVC. Specimen/Specimens Removed: none Estimated Blood Loss: EBL {In ML}: 2 Blood Products Given: N/A Drains Used: No Drains Post-Op Condition: Fair Date of Surgery/Procedure: 10/25/16 Time of Surgery/Procedure: 15:30
--- NOTE | 2016-10-25 15:50 | RAD ---
PROCEDURE: Date of procedure: 10/25/2016 Procedure: 1. Placement of a right arm PICC with ultrasound and fluoroscopic guidance, CPT 56931 2. PICC tip confirmation with spot radiograph and is in the superior vena cava Medications: 1 percent lidocaine Total Fluoro time: 8.7 seconds Radiation: [id number] EBL: 2 cc HISTORY: Bacteremia requiring long-term IV antibiotics TECHNIQUE: Following informed consent and procedure time-out, the patient was placed supine on the interventional table and the right arm prepped and draped in the usual sterile fashion. Ultrasound showed a patent and compressible right basilic vein. After the skin was anesthetized with lidocaine, the basilic vein was accessed with micro micropuncture technique using ultrasound guidance. A guidewire was then advanced under fluoroscopic guidance into the superior vena cava. An image documenting ultrasound guidance for vascular access was permanently saved. The length of the single-lumen 4 [place] PICC was trimmed to 34 centimeters and advanced through a peel-away sheath. The PICC was position with tip of PICC confirm a spot radiograph the superior vena cava. The PICC was secured to the patient's skin. The PICC was flushed. A biopatch and sterile dressing was applied. IMPRESSION: Placement of a single-lumen 4 [place] PICC trimmed to 34 centimeters via right basilic vein. The tip of the PICC is confirmed with spot radiograph and is in the superior vena cava.
--- NOTE | 2016-10-25 17:29 | CP.PCM.PN ---
Subjective - Date & Time of Evaluation Date of Evaluation: 10/25/16 Time of Evaluation: 17:28 - Subjective Subjective: Patient is having multiple episodes of diarrhea today. But she is feeling much better. The respiration is better. Coughing still present, no wheezing noted. Denies any nausea vomiting. Patient got the PICC line on the right arm Objective - Vital Signs/Intake and Output Vital Signs (last 24 hours): Temp Pulse Resp BP Pulse Ox 98.0 F 74 18 137/88 97 10/25/16 07:10 10/25/16 07:10 10/25/16 07:10 10/25/16 07:10 10/25/16 07:10 chest good air entry bilaterally regular heart sound nontender abdomen. Pedal edema bilaterally 1+ noted Intake and Output: 10/25/16 10/25/16 06:59 18:59 Intake Total 750 700 Balance 750 700 - Medications Medications: Current Medications Albuterol/Ipratropium (Duoneb 3 Mg/0.5 Mg (3 Ml) Ud) 3 ml INH RQ6 [facility] Last Admin: 10/25/16 13:03 Dose: 3 ml Alprazolam (Xanax) 1 mg PO BID SOHEILA Last Admin: 10/25/16 09:36 Dose: 1 mg Hydroxychloroquine Sulfate (Plaquenil) 200 mg PO BID [facility] Last Admin: 10/25/16 09:37 Dose: 200 mg Imipenem/Cilastatin Sodium 500 (mg/ Sodium Chloride) 100 mls @ 100 mls/hr IVPB Q8H [facility] Last Admin: 10/25/16 13:35 Dose: 100 mls/hr Methylprednisolone (Solu-Medrol) 40 mg IVP Q12 SOHEILA Last Admin: 10/25/16 09:37 Dose: 40 mg Montelukast Sodium (Singulair) 10 mg PO DAILY [facility] Last Admin: 10/25/16 09:36 Dose: 10 mg Oxycodone/Acetaminophen (Percocet 5/325 Mg Tab) 1 tab PO Q6H PRN PRN Reason: Pain, moderate (4-7) Stop: 10/26/16 22:33 Last Admin: 10/25/16 10:15 Dose: 1 tab Paroxetine HCl (Paxil Cr) 25 mg PO DAILY [facility] Last Admin: 10/25/16 09:37 Dose: 25 mg Pregabalin (Lyrica) 75 mg PO QID [facility] Last Admin: 10/25/16 13:35 Dose: 75 mg Promethazine HCl (Phenergan Syrup) 12.5 mg PO Q6 PRN PRN Reason: Cough Last Admin: 10/25/16 13:35 Dose: 12.5 mg Fluticasone/Salmeterol (Advair Diskus 250/50) 1 puff IH RBID [facility] Last Admin: 10/25/16 10:17 Dose: Not Given - Labs Labs: 10/24/16 16:50 10/25/16 14:29 Assessment and Plan (1) Asthma Assessment & Plan: Patient with a possible acute exacerbation of bronchial asthma. Currently on antibiotic, corticosteroids. Also had an episode of febrile illness, unclear etiology. On antibiotic. Patient had venous access patient is currently had a PICC line. Continue the pain medication. Status: Acute (2) Chr obstructive pulmonary disease w/ acute lower respiratory infxn Status: Acute (3) Fever Status: Acute
[2016-10-25] MEDS: Oxycodone/Acetaminophen 5/325 mg Tab PO SCH ×2 (18:02→23:47)
[2016-10-26] MEDS: Albuterol-Ipratrop 3 mg / 0.5 (3 ml) UD INH SCH ×4 (01:08→19:38)
[2016-10-26] MEDS: Oxycodone/Acetaminophen 5/325 mg Tab PO SCH ×3 (05:37→17:50)
[2016-10-26] MEDS: Fluticasone-Salmeterol 250-50mcg Diskus IH SCH ×2 (07:43→19:38)
[2016-10-26] MEDS: MethylPREDNISolone 40 mg Vial IVP SCH ×2 (11:00→21:00)
[2016-10-26] MEDS: Promethazine 12.5 mg/10 ml Syrup PO PRN ×2 (13:47→18:12)
[2016-10-27] MEDS: Oxycodone/Acetaminophen 5/325 mg Tab PO SCH ×3 (00:11→11:15)
[2016-10-27] MEDS: Promethazine 12.5 mg/10 ml Syrup PO PRN ×2 (00:11→10:22)
[2016-10-27] MEDS: Albuterol-Ipratrop 3 mg / 0.5 (3 ml) UD INH SCH ×3 (01:18→13:09)
[2016-10-27] MEDS: Fluticasone-Salmeterol 250-50mcg Diskus IH SCH (07:59)
[2016-10-27] MEDS: MethylPREDNISolone 40 mg Vial IVP SCH (10:23)
[2016-10-27 16:15] VITALS: BP 154/84; PULSE 75; RESP 20; TEMP 99.1; O2SAT 95
--- NOTE | 2016-11-29 18:06 | PN ---
DATE: 10/26/2016 SUBJECTIVE: The patient complaining of some abdominal pain; otherwise, the patient is feeling well. Denies any chest pain, no shortness of breath noted, cough present. The patient is currently receiving IV antibiotic otherwise. PHYSICAL EXAMINATION: VITAL SIGNS: Temperature is 97.8, pulse is 92 per minute. The patient is on BiPAP with 30% FiO2, ro om air oxygen saturation is 98%. HEENT: PERRLA. NECK: Supple. CHEST: Good air entry bilaterally. ABDOMEN: Lower abdomen tenderness noted, abdominal bowel sounds are normal. EXTREMITIES: Leg swelling is negative. ASSESSMENT AND RECOMMENDATIONS: The patient is a 61-year-old female admitted with colitis, urinary t ract infection, and cough. Currently doing well. Continue the current treatment. Herminia Russell MD cc: [id number] TT: 11/29/2016 18:05:26 Confirmation # [id number] Dictation # [id number] dn
--- NOTE | 2016-11-29 20:11 | DS ---
HISTORY OF PRESENT ILLNESS: A 61-year-old female with a history of hypertension, diabetes, hypothyro idism, obstructive sleep apnea, chronic osteoarthritis, lupus disorder, rheumatoid arthritis, recentl y hospitalized with acute febrile illness. The patient had an episode of pyelonephritis, was receivi ng antibiotic at the time the patient signed against medical advice. She was on oral ciprofloxacin, but because of the increasing diarrhea, nausea, abdominal pain, the patient came to the [facility] and needed hospitalization. The patient was continued to have problems in her diarrhea associated with abdominal pain. The patient is also having increasing cough, shortness of breath, and chest con gestion. Upon hospitalization, the patient was noted to have acute exacerbation of bronchial asthma associated with acute bronchitis, started on IV antibiotic, bronchodilators, and corticosteroid. The patient clinically improved markedly after 2 days of intravenous antibiotic, as well as corticostero id, clinically stable. She will be discharged home. She will follow up as an outpatient. FINAL DIAGNOSES: Acute exacerbation of bronchial asthma and bronchitis. Continue the bronchodilator s at home. Continue prednisone for a few days, as well as antibiotic, and we will follow up the leonor ent. Herminia Russell MD cc: [id number] TT: 11/29/2016 20:10:53 [email or web address]
== END 2016-10-27 16:00 | disposition home or self-care (01) | DRG 191 ==
LOC: C.ER 11:18 → C.9E 13:06 → C.3T 18:47 → C.5T 10-24 20:32
PROVIDERS: ADMIT Internal Medicine; ATTEND Internal Medicine
PROC: 5A09457 Assistance with Respiratory Ventilation, 24-96 Consecutive Hours, Continuous Positive Airway Pressure (ICD-10-PCS; principal; 2016-10-25)
PROC: 02HV33Z Insertion of Infusion Device into Superior Vena Cava, Percutaneous Approach (ICD-10-PCS; 2016-10-25)
PROC: B548ZZA Ultrasonography of Superior Vena Cava, Guidance (ICD-10-PCS; 2016-10-25)
DX: J44.0 Chronic obstructive pulmonary disease with (acute) lower respiratory infection (principal); J45.901 Unspecified asthma with (acute) exacerbation; I10 Essential (primary) hypertension; N12 Tubulo-interstitial nephritis, not specified as acute or chronic; J20.9 Acute bronchitis, unspecified; G47.33 Obstructive sleep apnea (adult) (pediatric); E11.9 Type 2 diabetes mellitus without complications; E03.9 Hypothyroidism, unspecified; E78.00 Pure hypercholesterolemia, unspecified; M81.0 Age-related osteoporosis without current pathological fracture; Z87.11 Personal history of peptic ulcer disease; M06.9 Rheumatoid arthritis, unspecified; F31.9 Bipolar disorder, unspecified; E87.6 Hypokalemia; F41.9 Anxiety disorder, unspecified

== ENCOUNTER 2017-04-07 07:54 | Day surgery (SDC) | payer MEDICARE, MEDICAID ==
[2017-04-07 08:34] VITALS: BMI 30.9
[2017-04-07] MEDS ORDERED: Propofol 10 mg/ml Inj (20 ML) ONE ×6 (09:32→10:33)
[2017-04-07] MEDS ORDERED: Lactated Ringer's 500 ML IV SCH (10:30)
[2017-04-07 11:01] VITALS: TEMP 98.4
[2017-04-07 13:34] VITALS: BP 141/88; PULSE 80; RESP 12; O2SAT 98
== END 2017-04-07 11:55 | disposition home or self-care (01) ==
LOC: C.ENDO 07:54
PROVIDERS: ATTEND Internal Medicine Gastroenterology
DX: K21.0 Gastro-esophageal reflux disease with esophagitis (principal); K22.8 Other specified diseases of esophagus; K44.9 Diaphragmatic hernia without obstruction or gangrene; K29.50 Unspecified chronic gastritis without bleeding; K59.00 Constipation, unspecified; K64.1 Second degree hemorrhoids; I25.10 Atherosclerotic heart disease of native coronary artery without angina pectoris; E78.5 Hyperlipidemia, unspecified; M06.9 Rheumatoid arthritis, unspecified; M32.9 Systemic lupus erythematosus, unspecified; M79.7 Fibromyalgia; G89.29 Other chronic pain; D64.9 Anemia, unspecified; G47.30 Sleep apnea, unspecified; M85.80 Other specified disorders of bone density and structure, unspecified site; E55.9 Vitamin D deficiency, unspecified; F41.9 Anxiety disorder, unspecified; F31.9 Bipolar disorder, unspecified; Z98.51 Tubal ligation status; Z98.890 Other specified postprocedural states; Z79.899 Other long term (current) drug therapy
CPT/HCPCS: 43239; 45378; 88305; J2704; J7120

== ENCOUNTER 2017-08-30 15:03 | Emergency (ER) | payer MEDICARE, MEDICAID ==
[2017-08-30 15:10] VITALS: BMI 28.8
[2017-08-30 15:16] VITALS: RESP 18
[2017-08-30] MEDS ORDERED: Sodium Chloride 0.9% 1,000 ML IV SCH (15:45)
--- NOTE | 2017-08-30 16:21 | RAD ---
HISTORY: Cough COMPARISON: 08/26/2017. TECHNIQUE: Chest PA and lateral FINDINGS: LINES AND TUBES: None. LUNG AND PLEURA: The lungs are well inflated and clear. HEART AND MEDIASTINUM: The heart is not enlarged. Atherosclerotic aortic arch calcifications are present. The hilar and mediastinal contours are within normal limits. SKELETAL STRUCTURES: The bony structures are within normal limits for the patient's age. VISUALIZED UPPER ABDOMEN: Normal. OTHER FINDINGS: None. IMPRESSION: No active pulmonary disease.
--- NOTE | 2017-08-30 17:24 | C.PDOC ---
History Of Present Illness 61 yr old female presents to the ER with complaints of weakness and flu like symptoms for the past few weeks. Patient also reports of productive cough with dark sputum. Patient states she fell few weeks ago due to her Rheumatoid arthritis, did not have LOC. Patient states she called her MD who referred her to the ER. Patient denies fever, chest pain, SOB, nausea, vomiting, abdominal pain, diarrhea, numbness or headache. Time Seen by Provider: 08/30/17 15:38 Chief Complaint (Nursing): Cough, Cold, Congestion History Per: Patient History/Exam Limitations: no limitations Onset/Duration Of Symptoms: Days Past Medical History Reviewed: Historical Data, Nursing Documentation, Vital Signs Vital Signs: Last Vital Signs Temp 99.4 F 08/30/17 19:31 Pulse 89 08/30/17 19:31 Resp 18 08/30/17 19:31 BP 134/80 08/30/17 19:31 Pulse Ox 99 08/30/17 19:31 - Medical History PMH: Anemia, Anxiety, Arthritis, Asthma, Back Problems, Bipolar Disorder, Bronchitis, COPD, Depression, Fibromyalgia, Fractures, Gastritis, Gastrointestinal Ulcer, Gall Bladder Disease (under diagnosis), HTN, Hypercholesterolemia, Osteoporosis, Pneumonia, Rheumatoid Arthritis, Sleep Apnea (CPAP @ 15) Surgical History: Endoscopy - [facility] Procedures ASSISTANCE WITH RESPIRATORY VENTILATION, 24-96 HRS, CPAP (10/23/16) ENDOSCOPIC BRONCHIAL BX (09/07/13) ESOPHAGOGASTRODUODENOSCOPY [EGD] W/CLOSED BIOPSY (08/15/13) INSERTION OF INFUSION DEV INTO SUP VENA CAVA, PERC APPROACH (10/23/16) NON-INVASIVE MECHANICAL VENTILATION (06/26/14) ULTRASONOGRAPHY OF SUPERIOR VENA CAVA, GUIDANCE (10/23/16) Family History: States: No Known Family Hx - Social History Hx Tobacco Use: No Hx Alcohol Use: No Hx Substance Use: No - Immunization History Hx Tetanus Toxoid Vaccination: Yes Hx Influenza Vaccination: Yes Hx Pneumococcal Vaccination: No Review Of Systems Except As Marked, All Systems Reviewed And Found Negative. Constitutional: Positive for: Weakness. Negative for: Fever Cardiovascular: Negative for: Chest Pain Respiratory: Negative for: Shortness of Breath Gastrointestinal: Negative for: Nausea, Vomiting, Abdominal Pain, Diarrhea Neurological: Negative for: Numbness, Headache Physical Exam - Physical Exam Appears: Non-toxic, No Acute Distress Skin: Warm, Dry, No Rash Head: Atraumatic, Normacephalic Eye(s): bilateral: Normal Inspection, PERRL, EOMI Oral Mucosa: Moist Neck: Normal, Normal ROM, Supple Cardiovascular: Rhythm Regular, No Murmur Respiratory: Normal Breath Sounds, No Rales, No Rhonchi, No Wheezing Gastrointestinal/Abdominal: Normal Exam, Soft, No Tenderness, No Guarding, No Rebound Extremity: Normal ROM, No Swelling Neurological/Psych: Oriented x3, Normal Speech ED Course And Treatment - Laboratory Results Result Diagrams: 08/30/17 18:57 08/30/17 18:57 O2 Sat by Pulse Oximetry: 96 (RA) Pulse Ox Interpretation: Normal - Other Rad CXR X-Ray: Viewed By Me, Read By Radiologist Interpretation: HISTORY: Cough. COMPARISON: 08/26/2017. TECHNIQUE: Chest PA and lateral. FINDINGS: LINES AND TUBES: None. LUNG AND PLEURA: The lungs are well inflated and clear. HEART AND MEDIASTINUM: The heart is not enlarged. Atherosclerotic aortic arch calcifications are present. The hilar and mediastinal contours are within normal limits. SKELETAL STRUCTURES: The bony structures are within normal limits for the patient's age. VISUALIZED UPPER ABDOMEN: Normal. OTHER FINDINGS: None. IMPRESSION: No active pulmonary disease. Medical Decision Making Medical Decision Making: PLAN: * CXR * EKG * Labs * Influenza * Urinalysis * Sodium Chloride IV Disposition - Disposition Referrals: Herminia Russell MD [Staff Provider] - Disposition: HOME/ ROUTINE Disposition Time: 19:30 Condition: GOOD Additional Instructions: Thank you for letting us take care of you today. The emergency medical care you received today was directed at your acute symptoms. If you were prescribed any medication, please fill it and take as directed. It may take several days for your symptoms to resolve. Return to the Emergency Department if your symptoms worsen, do not improve, or if you have any other problems. Please contact your doctor or call one of the physicians/clinics you have been referred to that are listed on the Patient Visit Information form that is included in your discharge packet. Bring any paperwork you were given at discharge with you along with any medications you are taking to your follow up visit. Our treatment cannot replace ongoing medical care by a primary care provider (PCP) outside of the emergency department. Thank you for allowing the [facility] team to be part of your care today. Follow up with Dr. Russell in 3-4 days for re-evaluation and further management. Instructions: Fatigue Forms: [facility] [employer] (Portuguese) - Clinical Impression Clinical Impression: Viral disease - Scribe Statement The provider has reviewed the documentation as recorded by the Tyreseibe Aubree العلي Provider Attestation: All medical record entries made by the Scribe were at my direction and personally dictated by me. I have reviewed the chart and agree that the record accurately reflects my personal performance of the history, physical exam, medical decision making, and the department course for this patient. I have also personally directed, reviewed, and agree with the discharge instructions and disposition.
[2017-08-30 19:02] LABS: BASO # 0.1 K/uL (0.0-0.2); EOS # 0.3 K/uL (0.0-0.7); HEMOGLOBIN 12.8 g/dL (11.0-16.0); LYMPH # 2.9 K/uL (1.0-4.3); LYMPH % 23.3 % (20.0-40.0); MEAN CELL VOLUME 96.7 fL (81.0-99.0); MEAN CORPUSCULAR HEMOGLOBIN 32.2 pg (27.0-31.0); MEAN CORPUSCULAR HGB CONC 33.3 g/dL (33.0-37.0); MEAN PLATELET VOLUME 8.9 fL (7.2-11.7); MONO # 0.8 K/uL (0.0-0.8); MONO % 6.4 % (0.0-10.0); NEUT # 8.5 K/uL (1.8-7.0); NEUT % 67.3 % (50.0-75.0); RBC 3.99 Mil/uL (3.80-5.20); WHITE BLOOD COUNT 12.6 K/uL (4.8-10.8)
[2017-08-30 19:13] LABS: ALB/GLOB RATIO 1.3 (1.0-2.1); ALBUMIN 3.8 g/dL (3.5-5.0); ALT/SGPT 23 U/L (9-52); AST/SGOT 23 U/L (14-36); BLOOD UREA NITROGEN 12 mg/dL (7-17); CALCIUM 9.3 mg/dl (8.6-10.4); GFR AFRICAN-AMERICAN > 60; GFR NON-AFRICAN AMERICAN > 60
[2017-08-30 19:34] VITALS: BP 134/80; PULSE 89; TEMP 99.4
[2017-08-30 19:49] LABS: T3 2.71 nmol/L (1.49-2.60)
[2017-08-30 20:19] LABS: SQUAMOUS EPITHIAL 45 /hpf (0-5); URINE BACTERIA RARE (<OCC); URINE BILIRUBIN NEGATIVE (NEGATIVE); URINE BLOOD NEGATIVE (NEGATIVE); URINE CLARITY Hazy (Clear); URINE COLOR Yellow (YELLOW); URINE GLUCOSE (UA) NORMAL (Normal); URINE LEUKOCYTE ESTERASE 2+ Leu/uL (Negative); URINE NITRATE NEGATIVE (NEGATIVE); URINE PROTEIN NEGATIVE (NEGATIVE); URINE UROBILINOGEN NORMAL mg/dL (0.2-1.0)
[2017-08-31 00:53] VITALS: O2SAT 96
--- NOTE | 2017-08-31 11:44 | CARD ---
APPROVED REPORT EKG Measurement Heart [id number] [place] [id number] <Conclusion> Normal sinus rhythm Normal ECG
== END 2017-08-30 20:15 | disposition home or self-care (01) ==
LOC: C.ER 15:03
DX: B34.9 Viral infection, unspecified (principal); I10 Essential (primary) hypertension; E78.00 Pure hypercholesterolemia, unspecified; M06.9 Rheumatoid arthritis, unspecified; D64.9 Anemia, unspecified
CPT/HCPCS: 71046; 80053; 81001; 84443; 84480; 84484; 85025; 87040; 87804; 93005; 99284; J7040

== ENCOUNTER 2018-06-14 14:20 | Emergency (ER) | payer MEDICARE, MEDICAID ==
[2018-06-14] MEDS ORDERED: Oxycodone/Acetaminophen 5/325 mg Tab PO STA (15:01)
[2018-06-14 15:08] VITALS: BP 137/84; PULSE 88; RESP 20; TEMP 97.7; O2SAT 100; BMI 29.2
--- NOTE | 2018-06-14 15:16 | C.PDOC ---
History Of Present Illness 62 y/o female, w/PMhx of osteoarthritis, osteoporesis, rheumatoid arthritis, and fibromyalgia, brought to ER by ambulance complaining of headache and back pain which has been present for the past 4 days. Patient states that her left knee buckled and she fell backwards. Patient hit her head and back on the ground and she called [facility]. However, when EMS arrived, she would not let them open the door to her apartment. She was laying on her bed for the past 4 days and continued to have constant throbbing headache. She notes that she has worsening back pain, which is greater than her usual chronic back pain. She has bilateral knee pain with movement. She had a homemaker who called for the ambulance today so she could come to the ER. She notes that she ran out of her Oxycontin medication. Denies having LOC, CP, SOB, fever, and chills. Time Seen by Provider: 06/14/18 14:39 Chief Complaint (Nursing): Trauma History Per: Patient History/Exam Limitations: no limitations Onset/Duration Of Symptoms: Days Current Symptoms Are (Timing): Still Present Severity: Moderate Past Medical History Reviewed: Historical Data, Nursing Documentation, Vital Signs Vital Signs: Last Vital Signs Temp 97.7 F 06/14/18 14:54 Pulse 88 06/14/18 14:54 Resp 20 06/14/18 14:54 BP 137/84 06/14/18 14:54 Pulse Ox 100 06/14/18 14:54 - Medical History PMH: Anemia, Anxiety, Arthritis, Asthma, Back Problems, Bipolar Disorder, Bronchitis, COPD, Depression, Fibromyalgia, Fractures, Gastritis, Gastrointestinal Ulcer, Gall Bladder Disease (under diagnosis), HTN, Hypercholesterolemia, Osteoporosis, Pneumonia, Rheumatoid Arthritis, Sleep Apnea (CPAP @ 15) Denies: Chronic Kidney Disease Surgical History: Endoscopy - [facility] Procedures ASSISTANCE WITH RESPIRATORY VENTILATION, 24-96 HRS, CPAP (10/23/16) ENDOSCOPIC BRONCHIAL BX (09/07/13) ESOPHAGOGASTRODUODENOSCOPY [EGD] W/CLOSED BIOPSY (08/15/13) INSERTION OF INFUSION DEV INTO SUP VENA CAVA, PERC APPROACH (10/23/16) NON-INVASIVE MECHANICAL VENTILATION (06/26/14) ULTRASONOGRAPHY OF SUPERIOR VENA CAVA, GUIDANCE (10/23/16) Family History: States: No Known Family Hx - Social History Hx Tobacco Use: No Hx Alcohol Use: No Hx Substance Use: No - Immunization History Hx Tetanus Toxoid Vaccination: Yes Hx Influenza Vaccination: Yes Hx Pneumococcal Vaccination: No Review Of Systems Except As Marked, All Systems Reviewed And Found Negative. Constitutional: Negative for: Fever, Chills Cardiovascular: Negative for: Chest Pain Respiratory: Negative for: Shortness of Breath Musculoskeletal: Positive for: Back Pain Neurological: Positive for: Headache. Negative for: Weakness, Numbness Physical Exam - Physical Exam Appears: Non-toxic, No Acute Distress, Other (awake,alert) Skin: Normal Color, Warm, Dry Head: Atraumatic, Normacephalic Eye(s): bilateral: Normal Inspection Nose: Normal Oral Mucosa: Moist Neck: Supple Chest: Symmetrical Cardiovascular: Rhythm Regular Respiratory: Normal Breath Sounds, No Rales, No Rhonchi, No Wheezing Gastrointestinal/Abdominal: Normal Exam, Soft, No Tenderness, No Guarding, No Rebound Back: Other (diffuse tenderness, atraumatic, no point tenderness, no swelling, no bruising, no abrasions) Extremity: Normal ROM, No Tenderness (left knee), No Swelling (left knee) Neurological/Psych: Oriented x3, Normal Speech ED Course And Treatment O2 Sat by Pulse Oximetry: 100 (RA) Pulse Ox Interpretation: Normal - Other Rad C spine, T spine, LS spine X-Ray: Interpreted by Me Interpretation: degenerative changes with lumbar dextroscoliosis. No evidence for fracture, dislocation or subluxation. - CT Scan/US head Other Rad Studies (CT/US): Read By Radiologist, Radiology Report Reviewed CT/US Interpretation: Accession No. : [id number]. Patient Name / ID : KARLY CR / [id number]. Exam Date : 06/14/2018 15:58:19 ( Approved ). Study Comment : Sex / Age : F / [id number]. Creator : Lisa Holloway. Dictator : Luz Elena Camarena MD. Insurance Professional : Oil Laboratory Analyst : Luz Elena Camarena MD. Approver2 : Report Date : 06/14/2018 16:03:55. My Comment : . Date of service: 06/14/2018. PROCEDURE: CT HEAD WITHOUT CONTRAST. HISTORY: fall with head injury. COMPARISON: Noncontrast head CT performed 10/28/15. TECHNIQUE: Axial computed tomography images were obtained through the head/brain without intravenous contrast. Radiation dose: Total exam DLP = 1078.14 mGy-cm. This CT exam was performed using one or more of the following dose reduction techniques: Automated exposure control, adjustment of the mA and /or kV according to patient size, and/or use of iterative reconstruction technique. FINDINGS: HEMORRHAGE: No intracranial hemorrhage. BRAIN: Diffuse atrophy with prominence of the ventricles and sulci noted. No mass effect or edema. Scattered periventricular and subcortical white matter hypodensities, which are nonspecific, but often seen with chronic microvascular ischemic disease. Please note that MRI with diffusion imaging is more sensitive in the detection of acute ischemic event. VENTRICLES: No hydrocephalus. CALVARIUM: Re-identified protuberance involving the right frontal bone, likely benign. PARANASAL SINUSES: Unremarkable as visualized. No significant inflammatory changes. MASTOID AIR CELLS: Unremarkable as visualized. No inflammatory changes. OTHER FINDINGS: None. IMPRESSION: No acute intracranial pathology identified. Generalized atrophy. Nonspecific white matter changes. Re- identified protuberance involving the right frontal bone, likely benign. Reevaluation Time: 16:41 Reassessment Condition: Improved (Patient seen leaving the ED ambulatory with a walker. States "you can have Dr Russell call me with my xray results".) Medical Decision Making Medical Decision Making: Plan: --CT-Head --M-Xwt-[id number] Spine --J-Rrk-Xklgdh Spine --U-Quv-Crkgsnpz Spine --Percocet PO Disposition - Disposition Disposition: ELOPEMENT - ER ONLY Disposition Time: 16:42 Condition: IMPROVED - Clinical Impression Clinical Impression: Fall, Chronic back pain - Scribe Statement The provider has reviewed the documentation as recorded by the Tyreseibamna Samson Provider Attestation: All medical record entries made by the Scribe were at my direction and per sonally dictated by me. I have reviewed the chart and agree that the record accurately reflects my personal performance of the history, physical exam, medical decision making, and the department course for this patient. I have also personally directed, reviewed, and agree with the discharge instructions and disposition.
[2018-06-14] MEDS ORDERED: Oxycodone/Acetaminophen 5/325 mg Tab ONE (15:32)
--- NOTE | 2018-06-14 16:23 | CT ---
Date of service: 06/14/2018 PROCEDURE: CT HEAD WITHOUT CONTRAST. HISTORY: fall with head injury COMPARISON: Noncontrast head CT performed 10/28/15 TECHNIQUE: Axial computed tomography images were obtained through the head/brain without intravenous contrast. Radiation dose: Total exam DLP = 1078.14 mGy-cm. This CT exam was performed using one or more of the following dose reduction techniques: Automated exposure control, adjustment of the mA and/or kV according to patient size, and/or use of iterative reconstruction technique. FINDINGS: HEMORRHAGE: No intracranial hemorrhage. BRAIN: Diffuse atrophy with prominence of the ventricles and sulci noted. No mass effect or edema. Scattered periventricular and subcortical white matter hypodensities, which are nonspecific, but often seen with chronic microvascular ischemic disease. Please note that MRI with diffusion imaging is more sensitive in the detection of acute ischemic event. VENTRICLES: No hydrocephalus. CALVARIUM: Re-identified protuberance involving the right frontal bone, likely benign. PARANASAL SINUSES: Unremarkable as visualized. No significant inflammatory changes. MASTOID AIR CELLS: Unremarkable as visualized. No inflammatory changes. OTHER FINDINGS: None. IMPRESSION: No acute intracranial pathology identified. Generalized atrophy. Nonspecific white matter changes. Re-identified protuberance involving the right frontal bone, likely benign.
--- NOTE | 2018-06-14 17:08 | RAD ---
Date of service: 06/14/2018 HISTORY: fall COMPARISON: No prior. FINDINGS: BONES: The vertebral bodies are maintained in height. Normal alignment is maintained. There is dextroscoliotic curvature of the thoracolumbar spine. DISC SPACES: Normal. SOFT TISSUES: Normal. OTHER FINDINGS: Atherosclerotic calcification of the thoracic aorta is noted. IMPRESSION: No acute fracture.
--- NOTE | 2018-06-14 17:09 | RAD ---
Date of service: 06/14/2018 PROCEDURE: Radiographs of the Lumbar Spine. HISTORY: fall with neck and back pain COMPARISON: No prior. FINDINGS: BONES: The vertebral bodies are maintained in height. There is minimal (grade 1) anterolisthesis at L4-5. The transverse processes and posterior elements are intact. There is dextroscoliotic curvature of the upper lumbar spine. DISC SPACES: There is degenerative disc disease noted at the L1-2 and L4-5 intervertebral disc space levels, with disc space narrowing, vacuum phenomenon and subchondral sclerosis as well as marginal osteophytes. OTHER FINDINGS: None. IMPRESSION: No acute fracture. Degenerative disc disease L1-2 and L4-5. Dextroscoliosis.
--- NOTE | 2018-06-14 17:11 | RAD ---
Date of service: 06/14/2018 PROCEDURE: Cervical Spine Radiographs. HISTORY: Pain. COMPARISON: None available. FINDINGS: BONES: There is mild decrease in height of the C3 and C4 vertebral bodies consistent with compression deformity of indeterminate age. The remaining cervical vertebral bodies are maintained in height. Normal alignment is maintained. The atlantoaxial articulation is intact. The radiographic evaluation of the odontoid process is limited. There is no gross evidence of fracture. DISC SPACES: There is narrowing of the C3-4 through C6-7 intervertebral disc spaces consistent with degenerative disc disease at these levels. SOFT TISSUES: Normal. No prevertebral soft tissue swelling. OTHER FINDINGS: None. IMPRESSION: Decrease height of the C3 and C4 vertebral bodies consistent with mild compression fracture of indeterminate age. Multilevel degenerative disc disease.
== END 2018-06-14 16:40 | disposition left against medical advice (07) ==
LOC: C.ER 14:20
DX: G89.29 Other chronic pain (principal); M54.9 Dorsalgia, unspecified; W18.30XA Fall on same level, unspecified, initial encounter

== ENCOUNTER 2018-07-21 14:19 | Emergency (ER) | payer MEDICARE, MEDICAID ==
[2018-07-21 14:20] VITALS: BMI 29.2
[2018-07-21] MEDS ORDERED: Sodium Chloride 0.9% 1,000 ML IV ONE (15:10)
--- NOTE | 2018-07-21 15:18 | C.PDOC ---
History Of Present Illness 62 y/o female with a PMHx of fibromyalgia, chronic pain, and COPD, presents to the ED complaining of cough, congestion, flu-like symptoms for 6 days. Reports she was seen by his PMD and prescribed Zithromax. Patient has frequent hx of pneumonia. No other complaints offered at this time. Patient denies any fevers, SOB, or chest pain. Time Seen by Provider: 07/21/18 15:02 Chief Complaint (Nursing): Flu-like Symptoms History Per: Patient History/Exam Limitations: no limitations Onset/Duration Of Symptoms: Days Current Symptoms Are (Timing): Still Present Past Medical History Reviewed: Historical Data, Nursing Documentation, Vital Signs Vital Signs: Last Vital Signs Temp Pulse 102 H 07/21/18 14:29 Resp 20 07/21/18 14:29 BP 134/90 07/21/18 14:29 Pulse Ox - Medical History PMH: Anemia, Anxiety, Arthritis, Asthma, Back Problems, Bipolar Disorder, Bronchitis, COPD, Depression, Fibromyalgia, Fractures, Gastritis, Gastrointestinal Ulcer, Gall Bladder Disease (under diagnosis), HTN, Hypercholesterolemia, Osteoporosis, Pneumonia, Rheumatoid Arthritis, Sleep Apnea (CPAP @ 15) Denies: Chronic Kidney Disease Surgical History: Endoscopy - [facility] Procedures ASSISTANCE WITH RESPIRATORY VENTILATION, 24-96 HRS, CPAP (10/23/16) ENDOSCOPIC BRONCHIAL BX (09/07/13) ESOPHAGOGASTRODUODENOSCOPY [EGD] W/CLOSED BIOPSY (08/15/13) INSERTION OF INFUSION DEV INTO SUP VENA CAVA, PERC APPROACH (10/23/16) NON-INVASIVE MECHANICAL VENTILATION (06/26/14) ULTRASONOGRAPHY OF SUPERIOR VENA CAVA, GUIDANCE (10/23/16) Family History: States: Unknown Family Hx - Social History Hx Tobacco Use: No Hx Alcohol Use: No Hx Substance Use: No - Immunization History Hx Tetanus Toxoid Vaccination: Yes Hx Influenza Vaccination: Yes Hx Pneumococcal Vaccination: No Review Of Systems Except As Marked, All Systems Reviewed And Found Negative. Constitutional: Positive for: Other (Bodyaches, flu-like symptoms). Negative for: Fever, Chills ENT: Positive for: Nose Congestion, Throat Pain Cardiovascular: Negative for: Chest Pain Respiratory: Positive for: Cough. Negative for: Shortness of Breath Gastrointestinal: Negative for: Nausea, Vomiting, Diarrhea Skin: Negative for: Rash Neurological: Negative for: Weakness, Dizziness Physical Exam - Physical Exam Appears: Non-toxic, No Acute Distress Skin: Normal Color, Warm, Dry Head: Atraumatic, Normacephalic Eye(s): bilateral: Normal Inspection, PERRL, EOMI Ear(s): Bilateral: Normal Nose: Normal Oral Mucosa: Moist Throat: Normal, No Erythema, No Exudate Neck: Normal ROM Chest: Symmetrical Cardiovascular: Rhythm Regular, No Murmur Respiratory: Normal Breath Sounds, No Rales, No Rhonchi, No Wheezing Gastrointestinal/Abdominal: Soft, No Tenderness, No Distention Back: Normal Inspection Extremity: Bilateral: Atraumatic, Normal Color And Temperature, Normal ROM Neurological/Psych: Oriented x3, Normal Speech ED Course And Treatment - Laboratory Results Result Diagrams: 07/21/18 16:05 07/21/18 16:05 Medical Decision Making Medical Decision Making: Impression: flu-like symptoms ro pna, other metoablic etiology of symptoms Plan: --CMP --CBC --PTT/PT --Chest x-ray --Flu swab --UA --IVF hydration --30 mg IV Toradol after xr, refues to wait for result sof labs. signs AMA> understnads risks. will return with worsening. refuses tamiflu. Disposition - Disposition Disposition: AGAINST MEDICAL ADVICE Disposition Time: 16:00 Condition: STABLE Additional Instructions: return to any er with worsening symptoms or concerns. Instructions: Viral Syndrome (DC), Leaving Against Medical Advice Forms: [employer] ([place]) - Clinical Impression Clinical Impression: Viral syndrome - Scribe Statement The provider has reviewed the documentation as recorded by the Do Tello Provider Attestation: All medical record entries made by the Do were at my direction and pe rsonally dictated by me. I have reviewed the chart and agree that the record accurately reflects my personal performance of the history, physical exam, medical decision making, and the department course for this patient. I have also personally directed, reviewed, and agree with the discharge instructions and disposition.
[2018-07-21] MEDS ORDERED: Sodium Chloride 0.9% 1,000 ML ONE (15:31)
--- NOTE | 2018-07-21 15:54 | RAD ---
Date of service: 07/21/2018 HISTORY: Cough COMPARISON: CT chest without contrast from 09/21/2017 TECHNIQUE: Chest PA and lateral FINDINGS: LINES AND TUBES: None. LUNG AND PLEURA: The lungs are well inflated and clear. No pleural effusion or pneumothorax. HEART AND MEDIASTINUM: The heart is not enlarged. There are aortic atherosclerotic calcifications present. The hilar and mediastinal contours are within normal limits. SKELETAL STRUCTURES: The bony structures are within normal limits for the patient's age. VISUALIZED UPPER ABDOMEN: Normal. OTHER FINDINGS: None. IMPRESSION: No active pulmonary disease.
[2018-07-21 16:23] LABS: BASO % 0.4 % (0.0-2.0); EOS # 0.3 K/uL (0.0-0.7); EOS % 2.6 % (0.0-4.0); HEMOGLOBIN 13.2 g/dL (11.0-16.0); LYMPH # 2.6 K/uL (1.0-4.3); LYMPH % 24.9 % (20.0-40.0); MEAN CORPUSCULAR HEMOGLOBIN 34.3 pg (27.0-31.0); MEAN CORPUSCULAR HGB CONC 33.2 g/dL (33.0-37.0); MEAN PLATELET VOLUME 8.8 fL (7.2-11.7); MONO # 0.7 K/uL (0.0-0.8); MONO % 6.5 % (0.0-10.0); NEUT % 65.6 % (50.0-75.0); NRBC % 0.1 % (0.0-2.0); RBC 3.86 Mil/uL (3.80-5.20); RED CELL DISTRIBUTION WIDTH 19.4 % (11.5-14.5); WHITE BLOOD COUNT 10.6 K/uL (4.8-10.8)
[2018-07-21 16:28] LABS: MEAN CELL VOLUME 103.3 fL (81.0-99.0)
[2018-07-21 16:37] LABS: ALB/GLOB RATIO 1.5 (1.0-2.1); ALBUMIN 3.8 g/dL (3.5-5.0); BLOOD UREA NITROGEN 4 mg/dL (7-17); CALCIUM 8.9 mg/dl (8.6-10.4); GFR NON-AFRICAN AMERICAN > 60
[2018-07-21 16:48] LABS: ALT/SGPT 48 U/L (9-52); AST/SGOT 88 U/L (14-36)
[2018-07-21 17:04] VITALS: BP 159/86; PULSE 100; RESP 18; TEMP 98.7; O2SAT 100
== END 2018-07-21 17:03 | disposition left against medical advice (07) ==
LOC: C.ER 14:19
DX: B34.9 Viral infection, unspecified (principal); I10 Essential (primary) hypertension; J44.0 Chronic obstructive pulmonary disease with (acute) lower respiratory infection; E78.00 Pure hypercholesterolemia, unspecified; F41.9 Anxiety disorder, unspecified
CPT/HCPCS: 71046; 80053; 85025; 87804; 96372; 99284; J1885